=== PATIENT | female | born 1930 | race Caucasian/White ===

== ENCOUNTER 2017-04-09 11:18 | Observation (INO) ==
[2017-04-09] MEDS ORDERED: IOPAMIDOL 100 ML BOTTLE IV ONE (11:19)
--- NOTE | 2017-04-09 11:30 | Emergency Department Note ---
Neuro HPI - General Chief Complaint: Stroke Symptoms Stated Complaint: Left eye changes, left weakness Time Seen by Provider: 04/09/17 11:27 Source: family Mode of arrival: wheelchair Limitations: no limitations - History of Present Illness HPI Narrative: This patient was found 1 hour ago to have slight left-sided weakness and slight left periorbital muscle weakness. She seems to be improving and has good rope walker strength now and some strength in her lower extremity though she still feels like her left leg is slightly weak. She has good strength in her facial muscles at this time. He also is on Coumadin so may not be a candidate for TPA. - Related Data Home Medications: Home Medications Medication Instructions Recorded Confirmed Furosemide [Lasix] 40 mg PO DAILY 02/10/17 04/09/17 HYDROcodone/ACETAMINOPHEN 1 each PO BIDP PRN 02/10/17 04/09/17 [Hydrocodon-Acetaminophen 5-325] Lansoprazole [Prevacid] 30 mg PO [facility] 02/10/17 04/09/17 Metoprolol Tartrate [Lopressor] 12.5 mg PO DAILY 02/10/17 04/09/17 Potassium Chloride [Kdur] 20 meq PO [facility] 02/10/17 04/09/17 Sertraline [Zoloft] 100 mg PO DAILY 02/10/17 04/09/17 Simvastatin [Zocor] 20 mg PO DAILY 02/10/17 04/09/17 Warfarin Sodium [Jantoven] 2 mg PO DAILY 02/10/17 04/09/17 predniSONE [Prednisone] 8 mg PO [facility] 02/10/17 04/09/17 Previous Rx's Medication Instructions Recorded Oseltamivir Phosphate [Tamiflu] 30 mg PO BID #10 cap 02/10/17 Allergies/Adverse Reactions: Allergies Allergy/AdvReac Type Severity Reaction Status Date / Time ADHESIVE TAPE Allergy Mild PT Uncoded 04/09/17 11:25 REQUESTS PAPER TAPE D/T THIN SKIN Review of Systems All systems ED: reviewed and negative except as stated. Past Medical History - Past Medical History Medical history: Reports: cancer (Ovarian), CHF, GERD, hypertension, pulmonary embolus Surgical history ED: Reports: herniorrhaphy (Umbilical) - Social History smoking status: Never smoker Physical Exam Limitations: no limitations General appearance: alert Head: atraumatic, normocephalic Eye: Present: other (At rest the periorbital muscles on the left are weak.) ENT: normal exam Neck: Present: normal inspection Chest: Present: normal inspection Neurological: Present: alert Cranial nerves: facial palsy (VII): Normal Motor strength - LUE: 5/5 Motor strength - RUE: 5/5 Motor strength - LLE: 4/5 Motor strength - RLE: 5/5 Psychiatric: Present: normal affect, normal mood Skin: Present: warm, dry Course Vital Signs Temperature 98.0 F 04/09/17 11:19 Pulse Rate 88 04/09/17 11:19 Respiratory Rate 28 H 04/09/17 11:19 Blood Pressure 179/109 04/09/17 11:19 Pulse Oximetry (%) 90 04/09/17 11:19 Temperature 98.0 F 04/09/17 11:19 Pulse Rate 67 04/09/17 14:30 Respiratory Rate 12 04/09/17 14:30 Blood Pressure 130/70 04/09/17 14:30 Pulse Oximetry (%) 95 04/09/17 14:36 Neuro Symptoms/Deficit - MDM Narrative Medical decision making narrative: Patient's initial CT scan showed small disease but no acute disease. Her initial INR was 2.7 so she was not a candidate for TPA. CTA of head and neck shows several 50% stenoses that are not hemodynamically significant. There certainly was no clot for interventional radiology to go after. Patient continues to have some slight left-sided weakness and the daughter thinks she will be unstable trying to walk at home. She would like her admitted to the hospital. I discussed the case with Dr. Acosta he will admit the patient. - Lab Data Lab results reviewed: Yes I reviewed the patient's lab results. Result diagrams: 04/09/17 11:32 04/09/17 11:32 Lab Results 04/09/17 04/09/17 04/09/17 Range/Units 11:32 11:32 11:32 WBC 9.4 (4.5-11.0) K/mcL RBC 4.79 (4.00-5.20) M/mcL Hgb 15.5 H (12.0-15.0) g/dL Hct 46.2 (36.0-48.0) % POC Hct 45.0 (36.0-48.0) % MCV 96.4 (80.0-100.0) fL MCH 32.3 (26.0-34.0) pg MCHC 33.5 (31.0-36.0) g/dL RDW 13.7 (11.5-14.5) % Plt Count 255 (140-440) K/mcL MPV 7.9 (7.4-10.4) fL Gran % 80.3 H (38.0-78.0) % Lymph % (Auto) 7.5 L (15.5-49.0) % [place] % (Auto) 9.4 (1.0-12.0) % Eos % (Auto) 2.7 (0.0-7.0) % Baso % (Auto) 0.1 (0.0-2.0) % Gran # 7.5 (1.8-8.0) K/mcL Lymph # (Auto) 0.7 L (1.5-4.8) K/mcL [place] # (Auto) 0.9 (0.1-0.9) K/mcL Eos # (Auto) 0.3 (0.0-0.7) K/mcL Baso # (Auto) 0 (0.0-0.3) K/mcL POC PT 27.0 H (11.9-14.5) sec POC INR 2.3 H (0.9-1.2) APTT 36 (20-37) sec POC Sodium 142 (133-145) mmol/L Sodium 142 (133-145) mmol/L POC Potassium 3.6 (3.3-5.1) mmol/L Potassium 3.9 (3.3-5.1) mmol/L POC Chloride 98 (96-108) mmol/L Chloride 98 (96-108) mmol/L Carbon Dioxide 31 H (22-30) mmol/L POC Total CO2 32 H (22-30) mmol/L Anion Gap 13.0 (8-16) POC BUN 24 H (8-23) mg/dl BUN 22 (8-23) mg/dl Creatinine 0.9 (0.6-1.1) mg/dl POC Creatinine 1.0 (0.6-1.1) mg/dl GFR Calculation 59 Glucose 112 H (70-105) mg/dL POC Glucose 115 H (70-105) mg/dL Calcium 9.4 (8.6-10.4) mg/dl POC WB Ioniz Calcium 1.13 L (1.16-1.32) mmol/L Total Bilirubin 0.5 (0.0-1.0) mg/dL AST 29 (0-37) U/l ALT 24 (0-40) U/l Alkaline Phosphatase 93 (39-117) U/L Troponin T (0-0.03) ng/ml Total Protein 6.6 (5.9-8.4) gm/dL Albumin 4.0 (3.2-5.2) gm/dL Globulin 2.6 (2.2-3.7) gm/dL Albumin/Globulin Ratio 1.5 (1.0-2.3) 04/09/17 Range/Units 11:32 WBC (4.5-11.0) K/mcL RBC (4.00-5.20) M/mcL Hgb (12.0-15.0) g/dL Hct (36.0-48.0) % POC Hct (36.0-48.0) % MCV (80.0-100.0) fL MCH (26.0-34.0) pg MCHC (31.0-36.0) g/dL RDW (11.5-14.5) % Plt Count (140-440) K/mcL MPV (7.4-10.4) fL Gran % (38.0-78.0) % Lymph % (Auto) (15.5-49.0) % [place] % (Auto) (1.0-12.0) % Eos % (Auto) (0.0-7.0) % Baso % (Auto) (0.0-2.0) % Gran # (1.8-8.0) K/mcL Lymph # (Auto) (1.5-4.8) K/mcL [place] # (Auto) (0.1-0.9) K/mcL Eos # (Auto) (0.0-0.7) K/mcL Baso # (Auto) (0.0-0.3) K/mcL POC PT (11.9-14.5) sec POC INR (0.9-1.2) APTT (20-37) sec POC Sodium (133-145) mmol/L Sodium (133-145) mmol/L POC Potassium (3.3-5.1) mmol/L Potassium (3.3-5.1) mmol/L POC Chloride (96-108) mmol/L Chloride (96-108) mmol/L Carbon Dioxide (22-30) mmol/L POC Total CO2 (22-30) mmol/L Anion Gap (8-16) POC BUN (8-23) mg/dl BUN (8-23) mg/dl Creatinine (0.6-1.1) mg/dl POC Creatinine (0.6-1.1) mg/dl GFR Calculation Glucose (70-105) mg/dL POC Glucose (70-105) mg/dL Calcium (8.6-10.4) mg/dl POC WB Ioniz Calcium (1.16-1.32) mmol/L Total Bilirubin (0.0-1.0) mg/dL AST (0-37) U/l ALT (0-40) U/l Alkaline Phosphatase (39-117) U/L Troponin T < 0.01 (0-0.03) ng/ml Total Protein (5.9-8.4) gm/dL Albumin (3.2-5.2) gm/dL Globulin (2.2-3.7) gm/dL Albumin/Globulin Ratio (1.0-2.3) - Radiology Data Radiology results reviewed: Yes I reviewed the patient's radiology results. Disposition Pt seen by POLICY VALUE CALCULATOR/PA only: No Clinical Impression: CVA (cerebral vascular accident) Disposition: Xfer As Inpt ([facility]) Condition: Fair Referrals: Franchesca Cardenas MD [Primary Care Provider] - Time of Disposition: 15:03
[2017-04-09 12:08] LABS: Basophils # (Auto) 0 K/mcL (0.0-0.3); Basophils % (Auto) 0.1 % (0.0-2.0); Eosinophils # (Auto) 0.3 K/mcL (0.0-0.7); Eosinophils % (Auto) 2.7 % (0.0-7.0); Granulocytes % (Auto) 80.3 % (38.0-78.0); Lymphocytes # (Auto) 0.7 K/mcL (1.5-4.8); Lymphocytes % (Auto) 7.5 % (15.5-49.0); Mean Cell Volume 96.4 fL (80.0-100.0); Mean Corpuscular HGB Conc 33.5 g/dL (31.0-36.0); Mean Corpuscular Hemoglobin 32.3 pg (26.0-34.0); Monocytes # (Auto) 0.9 K/mcL (0.1-0.9); Monocytes % (Auto) 9.4 % (1.0-12.0); Platelet Count 255 K/mcL (140-440); RBC 4.79 M/mcL (4.00-5.20); Red Cell Distribution Width 13.7 % (11.5-14.5)
[2017-04-09 12:21] LABS: ALT/SGPT 24 U/l (0-40); Albumin/Globulin Ratio 1.5 (1.0-2.3); Alkaline Phosphatase 93 U/L (39-117); Blood Urea Nitrogen 22 mg/dl (8-23)
--- NOTE | 2017-04-09 14:00 | Cat Scan Report ---
History: Acute stroke symptoms with left-sided weakness and prior history of uterine cancer Findings: The brain was imaged without contrast at 2.5 mm intervals. There is a 7 mm old lacunar infarct with encephalomalacia along the inferior border of the left putamen. There are severe widespread white matter changes with large confluent areas of decreased attenuation throughout the frontal and parietal occipital and posterior temporal lobes. These have no mass effect. No cortical infarct is detected. There is no hemorrhage. Mild generalized atrophy is seen. There are multiple physiologic calcifications in the globus pallidus bilaterally as well as in the cerebellar hemispheres. Impression: Severe white matter ischemia or degeneration above the tentorium No evidence of acute infarct or hemorrhage No evidence of metastasis Dr. Velez was called with results at 11:40 AM. Interpreted and Authenticated by: Don Henderson 04/09/17
--- NOTE | 2017-04-09 14:07 | Cat Scan Report ---
History: Acute stroke symptoms with left-sided weakness. There is a prior history of uterine cancer Findings: Nonionic contrast was injected intravenously. Arterial phase images were acquired from the aortic arch to the top of the head. Head and neck were imaged separately. Sagittal coronal and 3-D volume rendered images were then created of the brain and neck. The aortic arch and great vessels arising from the aorta are normal in caliber. There is a moderate amount of plaque in the aortic arch. There is no stenosis at the origin of great vessels. The common carotids are normal. There is a moderate amount densely calcified plaque along the posterior wall of the left carotid bifurcation. This is causing a 50% stenosis at the origin of the left internal carotid. There is no stenosis of the left external carotid. Distal to its origin, the left internal carotid is normal. In the right side of the neck there is a small amount of plaque formation at the bifurcation. There is no associated stenosis. The right internal carotid is otherwise normal. The vertebral arteries are normal and symmetric. Intracranially there is a moderate amount plaque in the cavernous portions of both internal carotids. These are causing less than 50% stenoses. Above the cavernous portions of the internal carotids, the intracranial carotid arteries are normal. The anterior and middle cerebral arteries are normal. The intracranial vertebral and basilar arteries are normal. There is no intracranial stenosis or vascular occlusion. No aneurysm or vascular malformation are present. There is no evidence of enhancing tumor within the brain or an acute inflammatory process. 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 Dr. marroquin was called with the results Interpreted and Authenticated by: Don Henderson 04/09/17
[2017-04-09 15:43] LABS: Appearance,Urine CLEAR; Bilirubin,Urine NEG (NEG); Color,Urine YELLOW; Glucose,Urine (UA) NEGATIVE (NEG); Leukocyte Esterase,Urine NEG /uL (NEG); Protein,Urine NEG (NEG); Specific Gravity,Urine 1.056 (1.000-1.035); Urine Blood NEG mg/dL (<0.03); Urobilinogen,Urine NEG (NEG)
[2017-04-09 16:51] LABS: Myoglobin 47 ng/ml (25-58)
--- NOTE | 2017-04-09 17:09 | Internal Med History&Physical ---
Medical - H&P: HPI Patient information: Note initiated : 04/09/17 at 5:05 pm Service Date, if different from initiated Date: [] Patient: Kim Torres a 86 y/o F admitted on for Left eye changes, left weakness. Chief Complaint: [] History of present illness: Ms. 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 The weakness started around 9:30 in the morning and, the patient fell down, and had decreased sensation in the left leg, the patient also reported numbness and weakness in the left arm, and some numbness in the left side of the face. The daughter of the patient was a nurse evaluated the patient and thought the patient may have had a stroke or TIA) the patient to the hospital. The patient is already on Coumadin with subtherapeutic INR, the patient denies cold was 4 and she had shown improving strength therefore I believe stroke team was not activated of course stroke was not activated. The patient had a head CT done which was reported as negative, labs are unremarkable, patient has negative troponin, INR was 2.3. EKG showed sinus rhythm left axis, left bundle branch block left ventricular hypertrophy along with strain pattern. the patient still had residual left leg weakness and it was thought it was not safe for her to be going back home she was therefore admitted to the hospital for further management The patient had a CT angiogram done for neck and head which shows 50% stenosis of the left ICA, The patient has some headache frontally, some dizziness, blurring of vision, questionable diplopia, she denies any difficulty in swallowing, no changes in hearing, there is no slurring of speech no facial deviation, no changes in behavior according to the daughter. The patient has no chest pain, she has no shortness of breath, she had some nausea, no vomiting, no abdominal pain, no urinary symptoms no constipation or diarrhea. She has chronic back pain, denies any acute skin rashes or new joint pains or arthralgia. Denies any psychiatric issues. All systems: reviewed and no additional remarkable complaints except as stated ( As per HPI) Medical - H&P: PMH Medical history: TIA Pulmonary embolism in the past single episode Hypertension History of uterine cancer Ventral hernia Left bundle-branch block Hyperlipidemia Surgical history: hysterectomy Gallbladder surgery Hernia surgery Pertinent family history: mother had history of cervical cancer Father has history of coronary artery disease and myocardial infarction Social history: patient lives with her daughterDenies any history of smoking, no alcohol use, no dictation substance use. Medical - H&P: Meds Home Medications Medication Instructions Recorded Confirmed Type Furosemide [Lasix] 40 mg PO DAILY 02/10/17 04/09/17 History HYDROcodone/ACETAMINOPHEN 1 each PO BIDP PRN 02/10/17 04/09/17 History [Hydrocodon-Acetaminophen 5-325] Lansoprazole [Prevacid] 30 mg PO [facility] 02/10/17 04/09/17 History Metoprolol Tartrate [Lopressor] 12.5 mg PO DAILY 02/10/17 04/09/17 History Potassium Chloride [Kdur] 20 meq PO [facility] 02/10/17 04/09/17 History Sertraline [Zoloft] 100 mg PO DAILY 02/10/17 04/09/17 History Simvastatin [Zocor] 20 mg PO DAILY 02/10/17 04/09/17 History Warfarin Sodium [Jantoven] 2 mg PO DAILY 02/10/17 04/09/17 History predniSONE [Prednisone] 8 mg PO [facility] 02/10/17 04/09/17 History Allergies Allergy/AdvReac Type Severity Reaction Status Date / Time ADHESIVE TAPE Allergy Mild PT Uncoded 04/09/17 11:25 REQUESTS PAPER TAPE D/T THIN SKIN Medical - H&P: Exam - Constitutional Vitals: Temp Pulse Resp BP Pulse Ox 98.0 F 74 18 146/85 98 04/09/17 11:19 04/09/17 17:01 04/09/17 17:01 04/09/17 17:01 04/09/17 17:01 Exam: GENERAL: The patient is a well-developed, well-nourished in no apparent distress. Is alert and oriented x3. VITAL SIGNS: Reviewed and as noted elsewhere. HEENT: Head is normocephalic and atraumatic. Extraocular muscles are intact. Pupils are equal, round, and reactive to light. Nares appeared normal. Mouth appears any without lesions. Mucous membranes are moist. NECK: Normal to inspection, Supple, No lymphadenopathy or thyromegaly. LUNGS: Air entry equal on both sides, no wheezing, crackles or rhonchi noted. No accessory muscles of respiration HEART: Regular rate and rhythm normal, S1 and S2 heard, no Gallop, S3 or Rub Noted, No Gross murmur heard. ABDOMEN: Soft, nontender, and nondistended. Positive bowel sounds. No hepatosplenomegaly was noted. EXTREMITIES: No cyanosis, clubbing, rash, lesions or edema. NEUROLOGIC: cn nerves intact, mild decrease in field of vision, pt thinks on looking to left her visual field is blurry, but unable to characterize further. She has decrased over all visual field by confrontation method. her strength in upper extremity is 4+/5 in left upper arm, x 5 in right upper arm, lower extremity strength is 4+ in left lower extremity and 5 x 5 in right lower extremity, sensation is mildly decreased on the left leg. Upper extremity sensation and facial sensations are normal PSYCHIATRIC: Normal affect, Normal Mood. Appropriate Behavior. SKIN: No ulceration or wounds noted, No jaundice, No rash noted. Medical - H&P: Reslt - Labs CBC & Chem 7: 04/09/17 11:32 04/09/17 11:32 Labs: Short CBC 04/09/17 Range/Units 11:32 WBC 9.4 (4.5-11.0) K/mcL Hgb 15.5 H (12.0-15.0) g/dL Hct 46.2 (36.0-48.0) % Plt Count 255 (140-440) K/mcL BMP 04/09/17 11:32 Sodium 142 Potassium 3.9 Chloride 98 Carbon Dioxide 31 H BUN 22 Creatinine 0.9 Glucose 112 H Calcium 9.4 Cardiac Enzymes 04/09/17 04/09/17 04/09/17 Range/Units 11:32 15:46 15:46 CK-MB (CK-2) 3.0 H (0-2.9) ng/ml Troponin T < 0.01 < 0.01 (0-0.03) ng/ml Liver Function 04/09/17 Range/Units 11:32 Total Bilirubin 0.5 (0.0-1.0) mg/dL AST 29 (0-37) U/l ALT 24 (0-40) U/l Alkaline Phosphatase 93 (39-117) U/L Albumin 4.0 (3.2-5.2) gm/dL Urine 04/09/17 Range/Units 14:58 Urine Color Yellow Urine Appearance Clear Urine pH 6.0 (5.0-9.0) Ur Specific [place] 1.056 H (1.000-1.035) Urine Protein Neg (NEG) mg/dL Urine Glucose (UA) Negative (NEG) mg/dL Medical - H&P: A/P - Narrative A/P Narrative: A/P TIA/ CVA: patient still has distal left leg weakness, it does not resolve by tomorrow likely would be a CVA, will get an echocardiogram, monitor on telemetry , get MRI of the head tomorrow morning. Patient is on aspirin with therapeutic INR. Pulmonary embolism-history of pulmonary embolism approximately 10 years ago, according to the daughter it was a small clot, probably sometime after she had a cardiac catheter done. No one actually told her how long she needs to be on Coumadin. This likely is also the time. When she had her cancer. In any case I think she is been completely anticoagulated for a pulmonary embolism. I'm not sure if lifelong and decortication is warranted in her condition. She would benefit by a referral to a psychologist educational to see if she still needs to be on Coumadin. The patient would be better served by being on aspirin for CVA prophylaxis. That is no documented history of atrial fibrillation at this point Hypertension-blood pressure was elevated, no medications to be given today, only if systolic blood pressure goes more than 220 and diastolic more than 120. hyperlipidemia-continue statin. Patient will get physical therapy, occupational therapy and speech therapy evaluation. DVT prophylaxis-on Coumadin with therapeutic INR patient is DNR CODE STATUS Medical - H&P: Qual - Stroke Onset of Symptoms Date: 04/09/17 Onset of Symptoms Time: 09:00
[2017-04-09] MEDS ORDERED: HYDROcodone/APAP 5/325MG TABLET PO PRN (17:30)
[2017-04-09] MEDS ORDERED: ONDANSETRON 4 MG/2 ML VIAL IV PRN (17:30)
[2017-04-09] MEDS ORDERED: NALOXONE HCL 0.4 MG/ML VIAL IV PRN (17:30)
[2017-04-09] MEDS: ACETAMINOPHEN 325 MG TABLET PO PRN (18:34)
[2017-04-09] MEDS: 0.9 % SODIUM CHLORIDE 10 ML SYRINGE IV SCH (22:00)
[2017-04-10] MEDS: 0.9 % SODIUM CHLORIDE 10 ML SYRINGE IV SCH ×4 (05:32→22:13)
[2017-04-10 05:37] LABS: Basophils # (Auto) 0 K/mcL (0.0-0.3); Basophils % (Auto) 0.1 % (0.0-2.0); Eosinophils # (Auto) 0.2 K/mcL (0.0-0.7); Eosinophils % (Auto) 2.6 % (0.0-7.0); Granulocytes % (Auto) 79.1 % (38.0-78.0); Lymphocytes # (Auto) 0.6 K/mcL (1.5-4.8); Lymphocytes % (Auto) 7.2 % (15.5-49.0); Mean Cell Volume 96.3 fL (80.0-100.0); Mean Corpuscular HGB Conc 34.2 g/dL (31.0-36.0); Mean Corpuscular Hemoglobin 32.9 pg (26.0-34.0); Platelet Count 199 K/mcL (140-440); RBC 4.22 M/mcL (4.00-5.20); Red Cell Distribution Width 13.6 % (11.5-14.5)
[2017-04-10 05:56] LABS: ALT/SGPT 17 U/l (0-40); Albumin 3.5 gm/dL (3.2-5.2); Albumin/Globulin Ratio 1.6 (1.0-2.3); Alkaline Phosphatase 77 U/L (39-117); Bilirubin,Direct < 0.2 mg/dL (0.0-0.3); Blood Urea Nitrogen 19 mg/dl (8-23); Gamma Glutamyl Transpeptidase 21 U/L (5-36); Uric Acid 5.7 mg/dL (2.5-8.0)
[2017-04-10] MEDS: PANTOPRAZOLE 40 MG TABLET PO SCH (07:00)
[2017-04-10] MEDS: ACETAMINOPHEN 325 MG TABLET PO PRN (07:14)
[2017-04-10] MEDS ORDERED: ASPIRIN 81 MG TAB.CHEW ONE (07:19)
[2017-04-10] MEDS ORDERED: ASPIRIN 81 MG TAB.CHEW CHEWED ONE (07:20)
[2017-04-10] MEDS: POTASSIUM CHLORIDE 20 MEQ TABLET PO SCH (09:08)
[2017-04-10] MEDS: SERTRALINE 100 MG TABLET PO SCH (09:09)
[2017-04-10] MEDS: SIMVASTATIN 20 MG TABLET PO SCH (09:09)
[2017-04-10] MEDS: FUROSEMIDE 40 MG TABLET PO SCH (09:09)
[2017-04-10] MEDS: predniSONE 1 MG TABLET PO SCH (09:09)
[2017-04-10] MEDS: METOPROLOL TARTRATE 25 MG TABLET PO SCH (10:07)
[2017-04-10] MEDS ORDERED: WARFARIN 2 MG TABLET PO SCH (14:00)
--- NOTE | 2017-04-10 15:15 | Internal Med Progress Note ---
Medical - PN: Subj Patient information: Note initiated : 04/10/17 at 3:12 pm Service Date, if different from initiated Date: [] Patient: Kim Torres a 86 y/o F admitted on 04/09/17 for Left Eye Changes, Left Weakness/ TIA/CVA. Chief Complaint: [] Interval history: Ms. 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 The weakness started around 9:30 in the morning and, the patient fell down, and had decreased sensation in the left leg, the patient also reported numbness and weakness in the left arm, and some numbness in the left side of the face. The daughter of the patient was a nurse evaluated the patient and thought the patient may have had a stroke or TIA) the patient to the hospital. The patient is already on Coumadin with subtherapeutic INR, the patient denies cold was 4 and she had shown improving strength therefore I believe stroke team was not activated of course stroke was not activated. The patient had a head CT done which was reported as negative, labs are unremarkable, patient has negative troponin, INR was 2.3. EKG showed sinus rhythm left axis, left bundle branch block left ventricular hypertrophy along with strain pattern. the patient still had residual left leg weakness and it was thought it was not safe for her to be going back home she was therefore admitted to the hospital for further management The patient had a CT angiogram done for neck and head which shows 50% stenosis of the left ICA, The patient has some headache frontally, some dizziness, blurring of vision, questionable diplopia, she denies any difficulty in swallowing, no changes in hearing, there is no slurring of speech no facial deviation, no changes in behavior according to the daughter. The patient has no chest pain, she has no shortness of breath, she had some nausea, no vomiting, no abdominal pain, no urinary symptoms no constipation or diarrhea. She has chronic back pain, denies any acute skin rashes or new joint pains or arthralgia. Denies any psychiatric issues. apr 10 patient seen and examined, no acute overnight events, this morning approximately 6:00 she noticed he may have had a recurrent of TIA. That resolved by the time I had seen her. Exam was unchanged since yesterday. She seemed to be in good spirits, tolerating by mouth diet well. Given this is the second symptom of TIA since yesterday, I think it is time to switch her anticoagulation from Coumadin to aspirin. The patient has no history of atrial fibrillation. She is on Coumadin because of history of pulmonary embolism, 8- 10 years ago. The patient had only one episode of pulmonary embolism, even if this was unprovoked this would only warrant treatment for one year. Given that there is a need to add aspirin to her regime, I will stop Coumadin and start her on aspirin therapy. 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 Echocardiogram result is pending. MRI is pending. Pertinent ROS: Denies headache, dizziness Denies chest pain, palpitations Denies cough or shortness of breath Denies abdominal pain, nausea or vomiting. - Constitutional Vitals: Vital Signs Temp Pulse Resp BP Pulse Ox 99.1 F H 68 16 155/80 93 04/10/17 11:45 04/09/17 23:44 04/10/17 11:45 04/10/17 11:45 04/10/17 11:45 Period Temp Pulse Resp BP Sys/Pineda Pulse Ox Last 24 Hr 97.8 F-100.2 F 68-75 16-29 131-168/67-85 90-98 Intake and Output 04/10/17 04/10/17 04/10/17 05:59 13:59 21:59 Intake Total 275 / 275 540 / 540 Output Total 325 / 325 550 / 550 Balance -50 / -50 -10 / -10 Intake & Output: Intake & Output 04/10/17 04/10/17 04/10/17 05:59 13:59 21:59 Intake Total 275 / 275 540 / 540 Output Total 325 / 325 550 / 550 Balance -50 / -50 -10 / -10 Intake: Oral 275 / 275 540 / 540 Output: Void Amount 325 / 325 550 / 550 Other: Meal Lunch Percent of Meal Consumed 75% Feeding Ability Assist with Tray Set Up Stool Size Large Stool Color Brown Stool Consistency Formed # Voids 1 1 - Head Additional comments: Constitutional; Afebrile, cooperative, alert, not in distress. Eyes- No icterus, , No periorbital swelling Ears- Ext ear normal, hearing normal to conversation. Neck- Midline trachea, supple Respiratory system: Air Entry equal on both sides, No crackles or wheezing, no rhonchi. CVS- Rate rhythm regular, S1,S2 heard, no gallop, no rub. 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 She has blurring of vision for which she uses prednisone. Medical - PN: Obj Da - Labs CBC & Chem 7: 04/10/17 04:25 04/10/17 04:25 Labs: Abnormal Lab Results 04/10/17 04/10/17 04/10/17 04:25 04:25 04:25 Hgb Gran % 79.1 H Lymph % (Auto) 7.2 L Lymph # (Auto) 0.6 L Creek # (Auto) 1.0 H POC PT PT 29.3 H POC INR INR 2.7 H Carbon Dioxide POC Total CO2 POC BUN Glucose POC Glucose POC WB Ioniz Calcium CK-MB (CK-2) Total Protein 5.7 L Ur Specific Noble 04/09/17 04/09/17 04/09/17 15:46 14:58 11:32 Hgb Gran % Lymph % (Auto) Lymph # (Auto) Creek # (Auto) POC PT PT POC INR INR Carbon Dioxide 31 H POC Total CO2 32 H POC BUN 24 H Glucose 112 H POC Glucose 115 H POC WB Ioniz Calcium 1.13 L CK-MB (CK-2) 3.0 H Total Protein Ur Specific Noble 1.056 H 04/09/17 04/09/17 11:32 11:32 Hgb 15.5 H Gran % 80.3 H Lymph % (Auto) 7.5 L Lymph # (Auto) 0.7 L Creek # (Auto) POC PT 27.0 H PT POC INR 2.3 H INR Carbon Dioxide POC Total CO2 POC BUN Glucose POC Glucose POC WB Ioniz Calcium CK-MB (CK-2) Total Protein Ur Specific Noble Meds: Medications Acetaminophen (Tylenol) 650 mg PO Q6HP PRN PRN Reason: PAIN/FEVER > 101 Last Admin: 04/10/17 07:14 Dose: 650 mg Hydrocodone Bitart/Acetaminophen (Cicero 5/325mg) 1 tab PO Q4HP PRN PRN Reason: PAIN LEVEL 3-6 Aspirin (Aspirin) 81 mg PO DAILY [facility] Furosemide (Lasix) 40 mg PO DAILY [facility] Last Admin: 04/10/17 09:09 Dose: 40 mg Metoprolol Tartrate (Lopressor) 12.5 mg PO DAILY [facility] Last Admin: 04/10/17 10:07 Dose: 12.5 mg Naloxone HCl (Narcan) 0.1 mg IV Q2MIN PRN PRN Reason: Opiate Reversal Ondansetron HCl (Zofran) 4 mg IV Q4HP PRN PRN Reason: Nausea And Vomiting [facility]oprazole [facility] Last Admin: 04/10/17 07:00 Dose: 40 mg Polyethylene Glycol (Miralax) 17 gm PO HSP PRN PRN Reason: Constipation Potassium Chloride (Kdur) 20 meq PO [facility] Last Admin: 04/10/17 09:08 Dose: 20 meq Prednisone (Prednisone) 8 mg PO [facility] Last Admin: 04/10/17 09:09 Dose: 8 mg Senna/Docusate Sodium (Senna Plus Tablet) 2 tab PO HS PRN PRN Reason: Constipation Sertraline HCl (Zoloft) 100 mg PO DAILY [facility] Last Admin: 04/10/17 09:09 Dose: 100 mg Simvastatin (Zocor) 20 mg PO DAILY [facility] Last Admin: 04/10/17 09:09 Dose: 20 mg Sodium Chloride (Saline Flush) 10 ml IV Q8 [facility] Last Admin: 04/10/17 05:32 Dose: 10 ml Medical - PN: A/P - Time Spent With Patient Total time spent is greater than 50% in coordination of care (as documented) at patient's floor/unit and/or counseling patient: - Narrative A/P Narrative: A/P TIA/ CVA: another episode this morning?, Patient does not have any neurological weakness compared to yesterday's exam. MRI pending, echo pending, given that there was a second episode I have started the patient on aspirin today. Pulmonary embolism: History of pulmonary embolism in the past, according to the daughter this was after a cardiac, may be related to the same timeframe that she had uterine cancer. At this time she seems to have been adequately treated for the pulmonary embolism. There is no evidence of recurrence of cancer, we will stop the Coumadin here and start her on aspirin. Initially the plan was to have her seen by television mechanic before the switch was made however given that she had a second episode of TIA this morning I think it is prudent that we make the change now. Hypertension-blood pressure was elevated but at goal, hyperlipidemia-continue statin. check lipid profile, check A1c Patient will get physical therapy, occupational therapy and speech therapy evaluation. DVT prophylaxis-on Coumadin with therapeutic INR, check inr and start hep sq once pt inr is sub therapeutic. patient is DNR CODE STATUS Medical - PN: Qual - Stroke Onset of Symptoms Date: 04/09/17 Onset of Symptoms Time: 09:00 Symptom Onset Unknown: No - VTE Deep Vein Thrombosis/Pulmonary Embolism Present on Admission: No
--- NOTE | 2017-04-10 15:16 | Magnetic Resonance Report ---
CLINICAL INFORMATION: Acute left-sided weakness COMPARISON: None. TECHNIQUE:Sagittal T1 FLAIR, axial T1 FLAIR, T2 FLAIR propeller, T2 propeller, gradient, diffusion, ADC and coronal T2 weighted images were acquired. FINDINGS: The ventricles, sulci, fissures and cisterns are symmetrically enlarged compatible with mild age-related atrophy - no extra-axial fluid collections or mass appreciated. Extensive chronic ischemic changes involving most of the deep cerebral white matter. There are multiple (greater than 10) foci of restricted diffusion involving the cortical and subcortical white matter of the right frontal parietal junction - near vertex. They range between three and 8 mm in size. Findings compatible with multiple acute nonhemorrhagic lacunar infarcts. IMPRESSION: Multiple acute, nonhemorrhagic lacunar infarcts in the cortical and subcortical white matter of the right frontal parietal junction - near vertex. These involve both the motor and sensory strip accounting for the patient's left-sided weakness. Consider: emboli from a right common/internal carotid or cardiac source. (The CT cervical carotid arteriogram, performed yesterday, was reviewed and shows only minimal plaque in the right carotid bifurcation.) Mild atrophy and extensive chronic ischemic changes in deep cerebral white matter Interpreted and Authenticated by: Eliseo Oliver 04/10/17
[2017-04-10] MEDS ORDERED: POLYETHYLENE GLYCOL 3350 17 GM PACKET PO PRN (21:00)
[2017-04-10] MEDS ORDERED: SENNOSIDES/DOCUSATE SODIUM 1 TAB TABLET PO PRN (21:00)
[2017-04-11 05:40] LABS: Basophils # (Auto) 0 K/mcL (0.0-0.3); Basophils % (Auto) 0.1 % (0.0-2.0); Eosinophils # (Auto) 0.3 K/mcL (0.0-0.7); Eosinophils % (Auto) 4.1 % (0.0-7.0); Granulocytes % (Auto) 73.9 % (38.0-78.0); Lymphocytes # (Auto) 0.7 K/mcL (1.5-4.8); Lymphocytes % (Auto) 10.4 % (15.5-49.0); Mean Cell Volume 95.3 fL (80.0-100.0); Mean Corpuscular HGB Conc 34.1 g/dL (31.0-36.0); Mean Corpuscular Hemoglobin 32.5 pg (26.0-34.0); Monocytes # (Auto) 0.8 K/mcL (0.1-0.9); Monocytes % (Auto) 11.5 % (1.0-12.0); Platelet Count 203 K/mcL (140-440); RBC 4.25 M/mcL (4.00-5.20); Red Cell Distribution Width 13.9 % (11.5-14.5)
[2017-04-11 05:56] LABS: ALT/SGPT 16 U/l (0-40); Albumin 3.4 gm/dL (3.2-5.2); Albumin/Globulin Ratio 1.5 (1.0-2.3); Alkaline Phosphatase 75 U/L (39-117); Bilirubin,Direct < 0.2 mg/dL (0.0-0.3); Blood Urea Nitrogen 17 mg/dl (8-23); Gamma Glutamyl Transpeptidase 20 U/L (5-36); HDL Cholesterol 53 mg/dl (>40); LDL Cholesterol,Calculated 72 mg/dl (SEE CHART); Uric Acid 5.6 mg/dL (2.5-8.0)
[2017-04-11] MEDS: 0.9 % SODIUM CHLORIDE 10 ML SYRINGE IV SCH (06:01)
[2017-04-11 06:26] LABS: Estimated Average Glucose(eAG) 123 mg/dL; Hemoglobin A1C 5.9 % HGB (4.0-6.0)
[2017-04-11] MEDS: PANTOPRAZOLE 40 MG TABLET PO SCH (07:27)
[2017-04-11] MEDS: FUROSEMIDE 40 MG TABLET PO SCH (08:56)
[2017-04-11] MEDS: SIMVASTATIN 20 MG TABLET PO SCH (08:56)
[2017-04-11] MEDS: METOPROLOL TARTRATE 25 MG TABLET PO SCH (08:57)
[2017-04-11] MEDS ORDERED: POTASSIUM CHLORIDE 20 MEQ PACKET PO ONE (08:58)
[2017-04-11] MEDS: POTASSIUM CHLORIDE 20 MEQ TABLET PO SCH (08:59)
[2017-04-11] MEDS ORDERED: ASPIRIN 81 MG TAB.CHEW PO SCH ×2 (09:00)
[2017-04-11] MEDS: predniSONE 1 MG TABLET PO SCH (09:00)
[2017-04-11] MEDS: SERTRALINE 100 MG TABLET PO SCH (10:52)
--- NOTE | 2017-04-11 11:29 | Discharge Summary ---
Medical - DS: Prov Patient information: Note initiated : 04/11/17 at 11:22 am Service Date, if different from initiated Date: [] Patient: Kim Torres 86 y/o F admitted on 04/09/17 for Left Eye Changes, Left Weakness/ TIA/CVA. Chief Complaint: [] Date of admission: 04/09/17 17:17 Discharge date: 04/11/17 Primary care physician: Franchesca Cardenas Admitting clinician: Esme Acosta Discharging clinician: Esme Acosta Medical - DS: Meds - Discharge Medications Prescriptions: Aspirin 81 mg PO DAILY #30 tab Active and Home Medications: Home Medications Furosemide [Lasix] 40 mg PO DAILY 02/10/17 [History Confirmed 04/09/17 Last Taken Unknown] HYDROcodone/ACETAMINOPHEN [Hydrocodon-Acetaminophen 5-325] 1 each PO BIDP PRN [History Confirmed 04/09/17 Last Taken Unknown] Lansoprazole [Prevacid] 30 mg PO [facility] 02/10/17 [History Confirmed 04/09/17 Last Taken Unknown] Metoprolol Tartrate [Lopressor] 12.5 mg PO DAILY 02/10/17 [History Confirmed Last Taken Unknown] Potassium Chloride [Kdur] 20 meq PO [facility] 02/10/17 [History Confirmed 04/09/17 Last Taken Unknown] Sertraline [Zoloft] 100 mg PO DAILY 02/10/17 [History Confirmed 04/09/17 Last Taken Unknown] Simvastatin [Zocor] 20 mg PO DAILY 02/10/17 [History Confirmed 04/09/17 Last Taken Unknown] Warfarin Sodium [Jantoven] 2 mg PO DAILY 02/10/17 [History Confirmed 04/09/17 Last Taken Unknown] predniSONE [Prednisone] 8 mg PO [facility] 02/10/17 [History Confirmed 04/09/17 Last Taken Unknown] Medical - DS: Hosp Hospital course: Ms. 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 The weakness started around 9:30 in the morning and, the patient fell down, and had decreased sensation in the left leg, the patient also reported numbness and weakness in the left arm, and some numbness in the left side of the face. The daughter of the patient was a nurse evaluated the patient and thought the patient may have had a stroke or TIA) the patient to the hospital. The patient is already on Coumadin with subtherapeutic INR, the patient denies cold was 4 and she had shown improving strength therefore I believe stroke team was not activated of course stroke was not activated. The patient had a head CT done which was reported as negative, labs are unremarkable, patient has negative troponin, INR was 2.3. EKG showed sinus rhythm left axis, left bundle branch block left ventricular hypertrophy along with strain pattern. the patient still had residual left leg weakness and it was thought it was not safe for her to be going back home she was therefore admitted to the hospital for further management The patient had a CT angiogram done for neck and head which shows 50% stenosis of the left ICA, bilateral moderate stenosis intracranially. The patient was doing well, but the next morning she complained about having recurrence of her symptoms on the left side, NIH score was 6, was 4 on admission. MRI of the head done which showed multiple small infarcts in the right side. Patient was given asa 325, The patient is on coumadin for PE, the patient had one episode of PE 10 yrs ago , after a cardiac cath procedure, she likely also had uterine cancer around that time. The patient has no h/o atrial fibrillation. The patient was having embolic stroke despite being on therapeutic dose of coumadin. Echo done showed normal lvef, no thrombus. Case of the patient was reviewed with Neurology in [place], Since patient has already likely been adequately treated for her PUlmonary embolus, and that she now has CVA. It was decided to start her on aspirin regime and stop the coumadin the patient would benefit from a evaluation with a stroke neurologist as outpatient after discharge, she will benefit from a evaluation by caretaker resort to ensure that she does not need skilled nursing anticogulation with coumadin for her PE. At the time of discharge the patient has mild left risidual weakness, some blurring of vision and diplopia, she is ambulatory, she is tolerating po diet well and in good spirits. Will d/c home with home physical therapy, Discharge diagnosis: CVA - Time Spent with Patient Total time spent providing and/or coordinating discharge services: Greater than 30 minutes Medical - DS: Exam - Constitutional Vitals: Vital Signs Temp Resp BP BP BP Pulse Ox 04/11/17 07:45 162/86 04/11/17 07:35 98.7 F 16 186/86 93 04/11/17 03:40 97.6 F 17 155/86 94 04/10/17 23:39 97.8 F 17 158/83 92 04/10/17 19:41 98.4 F 18 141/72 93 04/10/17 16:00 98.9 F 16 167/93 93 04/10/17 11:45 99.1 F H 16 155/80 93 Intake and Output 04/10/17 04/11/17 04/11/17 21:59 05:59 13:59 Intake Total 840 / 840 360 / 360 Output Total 350 / 350 725 / 725 Balance 490 / 490 -365 / -365 Intake: Oral 840 / 840 360 / 360 Output: Void Amount 350 / 350 725 / 725 Other: Meal Dinner Percent of Meal Consumed 100% Stool Size Small Stool Color Brown Stool Consistency Soft # Voids 0 1 # Bowel Movements 1 Weight 93 lb 1.6 oz Additional comments: Constitutional; Afebrile, cooperative, alert, not in distress. Eyes- No icterus, , No periorbital swelling Ears- Ext ear normal, hearing normal to conversation. Neck- Midline trachea, supple Respiratory system: Air Entry equal on both sides, No crackles or wheezing, no rhonchi. CVS- Rate rhythm regular, S1,S2 heard, no gallop, no rub. 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 These involve both the motor and sensory strip accounting for the patient's left-sided weakness. Consider: emboli from a right common/internal carotid or cardiac source. (The CT cervical carotid arteriogram, performed yesterday, was reviewed and shows only minimal plaque in the right carotid bifurcation.) Mild atrophy and extensive chronic ischemic changes in deep cerebral white matter CTA neck and Head Impression: 50% stenosis at the origin of the left internal carotid due to plaque formation Normal right carotid artery Less than 50% stenoses in the cavernous portions of the intracranial portions of the internal carotids due to plaque. (neurologist felt that the right ICA intracranially also had significant plaque burdeon Head CT Impression: Severe white matter ischemia or degeneration above the tentorium No evidence of acute infarct or hemorrhage No evidence of metastasis Labs on day of discharge: Labs from last 24 hours 04/11/17 04/11/17 04/11/17 04:26 04:26 04:26 WBC 6.9 RBC 4.25 Hgb 13.8 Hct 40.5 MCV 95.3 MCH 32.5 MCHC 34.1 RDW 13.9 Plt Count 203 MPV 7.7 Gran % 73.9 Lymph % (Auto) 10.4 L Towns % (Auto) 11.5 Eos % (Auto) 4.1 Baso % (Auto) 0.1 Gran # 5.1 Lymph # (Auto) 0.7 L Towns # (Auto) 0.8 Eos # (Auto) 0.3 Baso # (Auto) 0 PT 24.0 H INR 2.1 H Sodium 140 Potassium 3.2 L Chloride 99 Carbon Dioxide 30 Anion Gap 11.0 BUN 17 Creatinine 0.8 GFR Calculation 68 Glucose 88 Hemoglobin A1c 5.9 Estim Average Glucose 123 Uric Acid 5.6 Calcium 8.7 Phosphorus 2.7 Magnesium 1.8 Total Bilirubin 0.7 Direct Bilirubin < 0.2 GGT 20 AST 22 ALT 16 Alkaline Phosphatase 75 Lactate Dehydrogenase 181 Total Protein 5.7 L Albumin 3.4 Globulin 2.3 Albumin/Globulin Ratio 1.5 Triglycerides 96 Cholesterol 144 LDL Cholesterol, Calc 72 Non-HDL Cholesterol 91 HDL Cholesterol 53 Medical - DS: A/P - Patient/Caregiver Discharge Instructions Activity: as per physical therapy, increase activity as tolerated Diet: Cardiac Additional Instructions: Stop taking Coumadin Start aspirin 81 mg once a day taken with food Go to the emergency year worsening situation, left-sided weakness, acute headache, any other concerning symptom. Follow-up with hematology Dr. Mejias for evaluating the need for Coumadin. I have stopped this as I believe at this point you are adequately treated for pulmonary embolism but we will need the opinion from a specialist confirm this Follow-up with stroke neurology clinic at [place] Follow-up with primary care clinic in 1-2 weeks Work with physical therapy after discharge to regain function Follow-up with your eye doctor for evaluation of double vision and blurring Prescriptions: Aspirin 81 mg PO DAILY #30 tab - Follow up Plan Follow up with: Franchesca Cardenas MD [Primary Care Provider] - 04/17/17 10:00 am Homer Mejias MD [Physician] - Disposition: Home Health Service Prognosis: Fair Rehab Potential: Fair I certify that the patient requires SNF services: No Overall status at discharge: patient is progressing back to baseline Medical - DS: Qual - VTE Deep Vein Thrombosis/Pulmonary Embolism Present on Admission: No
[2017-04-11] MEDS ORDERED: WARFARIN 1 MG TABLET PO SCH (14:00)
== END 2017-04-11 15:45 | disposition home health service (06) ==
LOC: ED 11:18 → ICU 11:18
PROVIDERS: ADMIT Internal Medicine; ATTEND Internal Medicine

== ENCOUNTER 2018-12-28 18:25 | Inpatient (IN) ==
--- NOTE | 2018-12-28 19:14 | Emergency Department Note ---
SOB HPI - General Chief Complaint: Weakness Stated Complaint: weakness Time Seen by Provider: 12/28/18 18:31 Source: patient Mode of arrival: ambulatory Limitations: no limitations - History of Present Illness 88-year-old female patient referred to the emergency department via minor care with chief complaint of hypoxia. She was seen in minor care with chief complain t of worsening cough and chest congestion over the last 5 days. During her evaluation she was noted to be hypoxic around 86% on room air. They did a chest x-ray minor care that showed moderate distention of the fluid-filled esophagus. Radiologist suspected a stricture at the GE junction predisposing the patient aspiration. Radiologist did recommend an esophagram. He noted mild right perihilar infiltrate that was either pneumonia or could be aspiration. Patient moderate cardiomegaly. Patient also had osteoporotic compression fractures of the mid lower thoracic spine which are stable. He mentions no pulmonary edema. Upon arrival patient is awake, alert, and conversant. Oxygen saturation to triage were 86% on room air. She was placed on a nasal cannula at 2 L/m and her oxygen saturations increased to 98-99 percent. She was noted to be profoundly tachypneic at 36 breaths per minute. Her blood pressure was elevated 172/121. She admits to some proceeding and chills. She denies any overt fevers. She denies any sputum production. She denies sinus congestion. She admits to p rofuse runny nose that is chronic. She admits to worsening shortness of breath. She denies history of asthma or COPD. She denies retrosternal chest pain or palpitations. She denies abdominal pain, nausea, vomiting, or diarrhea. She denies focal weakness. She admits to generalized weakness. She denies significant weight gain. A review of her active problem list shows the following: Influenza B, CVA, shingles, hypertension, tremor, CHF, right finger fracture, skin abscess, epistaxis, ovarian cancer, history of intra-abdominal surgery. - Related Data Home Medications Medication Instructions Recorded Confirmed Polyethylene Glycol 3350 [Miralax] 17 gm PO DAILY 12/28/18 12/28/18 aspirin 81 mg tablet,delayed 81 mg PO QDAY 12/28/18 12/28/18 release dorzolamide-timolol (PF) 2 %-0.5 % 1 drp OPHTHALMIC BID 12/28/18 12/28/18 eye drops in a dropperette furosemide 40 mg tablet 40 mg PO QAM 12/28/18 12/28/18 hydrocodone 5 mg-acetaminophen 325 1 tab PO BID tab 12/28/18 12/28/18 mg tablet lansoprazole 30 mg capsule,delayed 30 mg PO BID cap 12/28/18 12/28/18 release lorazepam 0.5 mg tablet 0.25 mg PO QHS PRN 12/28/18 12/28/18 metoprolol tartrate 25 mg tablet 12.5 mg PO QDAY tab 12/28/18 12/28/18 multivit with 1 tab PO QDAY 12/28/18 12/28/18 rfzykaoh-pxho-JI-lutein 8 mg iron-400 mcg-300 mcg tablet potassium chloride 10 mEq 20 meq PO QDAY 12/28/18 12/28/18 capsule,extended release prednisone 5 mg tablet 5 mg PO Q OTHER DAY tab 12/28/18 12/28/18 sennosides 8.6 mg tablet 8.6 mg PO BID PRN 12/28/18 12/28/18 sertraline 100 mg tablet 100 mg PO QDAY 12/28/18 12/28/18 simvastatin 20 mg tablet 20 mg PO QHS 12/28/18 12/28/18 tizanidine 4 mg capsule 4 mg PO QHS 12/28/18 12/28/18 Allergies Allergy/AdvReac Type Severity Reaction Status Date / Time adhesive tape Allergy Mild Redness of Verified 12/28/18 18:30 Skin Review of Systems All systems ED: reviewed and negative except as stated. Past Medical History - Past Medical History Medical history: Reports: cancer (Ovarian), CHF, GERD, glaucoma, hyperlipidemia, hypertension, pulmonary embolus, other (Left bundle branch block) Surgical history ED: Reports: cholecystectomy, herniorrhaphy (Umbilical), hysterectomy - Social History smoking status: Never smoker Alcohol use: Reports: None Drug use: Reports: none Physical Exam Limitations: no limitations General appearance: alert, cachectic, in no apparent distress, other (patient is in no acute respiratory distress. She is able to speak in complete sentences. She does appear chronically ill.) Head: atraumatic, normocephalic Eye: Present: normal appearance, PERRL, EOMI. Absent: scleral icterus, conjunctival injection ENT: Present: normal oropharynx, mucous membranes moist Neck: Present: trachea midline. Absent: lymphadenopathy, thyromegaly Chest: Present: symmetric chest wall rise Respiratory: Present: normal lung sounds bilaterally, decreased breath sounds (decreased breath sounds throughout the chest.). Absent: respiratory distress, rales/crackles (No considerable rhonchi or crackles heard.), wheezes, stridor, accessory muscle use, prolonged expiratory phase Cardiovascular: Present: regular rate, irregular rhythm Abdominal: Present: soft, diminished bowel sounds, other. Absent: distention, tenderness, guarding, rebound, rigidity Extremities: Present: normal capillary refill, pedal edema, pretibial edema, other (considerable plus 23 pitting edema from foot to the knee. Skin tear noted to the anterior portion of the left lower leg has a scant amount of yellow colored drainage.). Absent: tenderness, calf tenderness Back: Absent: tenderness Neurological: Present: alert, oriented X3 Psychiatric: Present: normal affect, normal mood Skin: Present: warm, dry, other (skin tear as noted above.) Course Course Narrative: Patient was brought into the emergency department and a history and physical exam performed. Saline lock was started and laboratory studies are drawn. Patient had a chest x-ray performed minor care that did show a developing infiltrate. She continued to need nasal cannula oxygen at 2 L/m. Based on this fact, patient I will start treatment for the developing pneumonia with Rocephin 1 g and azithromycin 500 mg IV. A review of her laboratory studies show the following: CBC hemoglobin 16.4, hematocrit 50.3, granulocytes percent 80.0, all others a normal limits. CMP CO2 32, BUN 31, glucose 117, AST 42, all others are normal limits. Lactic acid 1.1. Pro-calcitonin less than 0.05. ProBNP 15,537. After reviewing all the data I discussed these findings with the patient and her family. At this time she remains hypoxic without supplemental oxygen. She has the pneumonia developing in her chest and a significant elevated proBNP in the context of ongoing CHF. Patient needs to be admitted to the hospital for further treatment and management. With this in mind, I reached out to the hospitalist (Dr. Gauthier) about the patient. He mentioned that the pneumonia is likely aspiration variant versus community-acquired. All the antibiotics and I had started the emergency department are likely going to be ineffective. He is going to switch her over to something more appropriate such as Zosyn. He consented to receive the patient into the hospital. I discussed this with the patient's family and they verbalized understanding. Patient remained stable while on supplemental oxygen throughout her time in the emergency department. She is being transferred under the care of the hospitalist (Dr. Gauthier). All further treatment decisions and modalities will be carried out by the hospitalist. Vital Signs Temperature 96.8 F L 12/28/18 18:26 Respiratory Rate 36 H 12/28/18 18:26 Blood Pressure 172/121 12/28/18 18:26 Pulse Oximetry (%) 86 L 12/28/18 18:26 Temperature 96.8 F L 12/28/18 18:26 Pulse Rate 70 12/28/18 22:14 Respiratory Rate 28 H 12/28/18 22:14 Blood Pressure 136/82 12/28/18 22:01 Pulse Oximetry (%) 96 12/28/18 22:14 Shortness of Breath/Dyspnea - Lab Data Result diagrams: 12/28/18 19:56 12/28/18 20:45 Lab Results 12/28/18 12/28/18 12/28/18 Range/Units 19:56 19:56 20:12 WBC 6.5 (4.5-11.0) K/mcL RBC 5.18 (4.00-5.20) M/mcL Hgb 16.4 H (12.0-15.0) g/dL Hct 50.3 H (36.0-48.0) % POC Hct (36.0-48.0) % MCV 97.2 (80.0-100.0) fL MCH 31.6 (26.0-34.0) pg MCHC 32.5 (31.0-36.0) g/dL RDW 14.7 H (11.5-14.5) % Plt Count 177 (140-440) K/mcL MPV 8.2 (7.4-10.4) fL Gran % 80.0 H (38.0-78.0) % Lymph % (Auto) 8.8 L (15.5-49.0) % Victoria % (Auto) 10.8 (1.0-12.0) % Eos % (Auto) 0.1 (0.0-7.0) % Baso % (Auto) 0.3 (0.0-2.0) % Gran # 5.2 (1.8-8.0) K/mcL Lymph # (Auto) 0.6 L (1.5-4.8) K/mcL Victoria # (Auto) 0.7 (0.1-0.9) K/mcL Eos # (Auto) 0 (0.0-0.7) K/mcL Baso # (Auto) 0 (0.0-0.3) K/mcL VBG Lactic Acid (0.5-2.0) mmol/L POC Sodium (133-145) mmol/L Sodium 142 (133-145) mmol/L POC Potassium (3.3-5.1) mmol/L Potassium 3.8 (3.3-5.1) mmol/L POC Chloride (96-108) mmol/L Chloride 100 (96-108) mmol/L Carbon Dioxide 32 H (22-30) mmol/L POC Total CO2 (22-30) mmol/L Anion Gap 10.0 (8-16) POC BUN (8-23) mg/dl BUN 31 H (8-23) mg/dl Creatinine 0.8 (0.6-1.1) mg/dl POC Creatinine (0.6-1.1) mg/dl GFR Calculation 67 Glucose 117 H (70-105) mg/dL POC Glucose (70-105) mg/dL Calcium 9.1 (8.6-10.4) mg/dl POC WB Ioniz Calcium (1.16-1.32) mmol/L Total Bilirubin 0.3 (0.0-1.0) mg/dL AST 42 H (0-37) U/l ALT 27 (0-40) U/l Alkaline Phosphatase 92 (39-117) U/L NT-Pro-B Natriuret Pep 30125.0 H (0-450) pg/ml Total Protein 6.2 (5.9-8.4) gm/dL Albumin 3.8 (3.2-5.2) gm/dL Globulin 2.4 (2.2-3.7) gm/dL Albumin/Globulin Ratio 1.6 (1.0-2.3) Procalcitonin < 0.05 (<0.10) ng/mL 12/28/18 12/28/18 Range/Units 20:45 20:45 WBC (4.5-11.0) K/mcL RBC (4.00-5.20) M/mcL Hgb (12.0-15.0) g/dL Hct (36.0-48.0) % POC Hct 50.0 H (36.0-48.0) % MCV (80.0-100.0) fL MCH (26.0-34.0) pg MCHC (31.0-36.0) g/dL RDW (11.5-14.5) % Plt Count (140-440) K/mcL MPV (7.4-10.4) fL Gran % (38.0-78.0) % Lymph % (Auto) (15.5-49.0) % Victoria % (Auto) (1.0-12.0) % Eos % (Auto) (0.0-7.0) % Baso % (Auto) (0.0-2.0) % Gran # (1.8-8.0) K/mcL Lymph # (Auto) (1.5-4.8) K/mcL Victoria # (Auto) (0.1-0.9) K/mcL Eos # (Auto) (0.0-0.7) K/mcL Baso # (Auto) (0.0-0.3) K/mcL VBG Lactic Acid 1.1 (0.5-2.0) mmol/L POC Sodium 141 (133-145) mmol/L Sodium TNP (133-145) mmol/L POC Potassium 3.8 (3.3-5.1) mmol/L Potassium TNP (3.3-5.1) mmol/L POC Chloride 99 (96-108) mmol/L Chloride TNP (96-108) mmol/L Carbon Dioxide TNP (22-30) mmol/L POC Total CO2 33 H (22-30) mmol/L Anion Gap TNP (8-16) POC BUN 32 H (8-23) mg/dl BUN TNP (8-23) mg/dl Creatinine TNP (0.6-1.1) mg/dl POC Creatinine 0.8 (0.6-1.1) mg/dl GFR Calculation TNP Glucose TNP (70-105) mg/dL POC Glucose 116 H (70-105) mg/dL Calcium TNP (8.6-10.4) mg/dl POC WB Ioniz Calcium 1.10 L (1.16-1.32) mmol/L Total Bilirubin TNP (0.0-1.0) mg/dL AST TNP (0-37) U/l ALT TNP (0-40) U/l Alkaline Phosphatase TNP (39-117) U/L NT-Pro-B Natriuret Pep TNP (0-450) pg/ml Total Protein TNP (5.9-8.4) gm/dL Albumin TNP (3.2-5.2) gm/dL Globulin TNP (2.2-3.7) gm/dL Albumin/Globulin Ratio TNP (1.0-2.3) Procalcitonin (<0.10) ng/mL - Radiology Data Radiology results reviewed: Yes I reviewed the patient's radiology results. Ordering Physician: Yanira Argueta PA-C Date of Service: 12/28/18 Procedure(s): XR chest 2V Accession Number(s): [id number] CLINICAL INFORMATION: J10.1 Influenza due to other identified influenza virus w... COMPARISON: 10/03/2018 FINDINGS: Heart is moderately enlarged, but unchanged. There is marked dilatation of the esophagus which demonstrates an air-fluid level in the mid mediastinum. Suspect stricture at the GE level. The mediastinum and pulmonary vessels are normal. Small vague right perihilar infiltrate has developed. Underlying COPD noted. No effusion. IMPRESSION: 1. Moderate distention of the fluid-filled esophagus - suspect stricture at the GE junction. This would predispose to aspiration. Consider: esophagram 2. Mild right perihilar infiltrate - either pneumonia or aspiration 3. Moderate cardiomegaly - stable 4. Osteoporotic compression fractures mid lower thoracic spine - stable Interpreted and Authenticated by: Eliseo Oliver 12/28/18 - EKG Data EKG attestation: Yes I reviewed and interpreted this EKG., Yes There are no EKG findings of acute coronary syndrome, Yes This EKG will be read by galley cook EKG results narrative: Twelve-lead EKG was compared to previous done over a year ago and is unchanged. Disposition Pt seen by CRA[employer]ER [employer]AG[employer] OPERATOR/PA only: Yes Clinical Impression: Hypoxia Pneumonia Qualifiers: Pneumonia type: due to unspecified organism Laterality: right Lung location: lower lobe of lung Qualified Code(s): J18.9 - Pneumonia, unspecified organism CHF (congestive heart failure) Qualifiers: Heart failure type: unspecified Heart failure chronicity: acute on chronic Qualified Code(s): I50.9 - Heart failure, unspecified Disposition: Xfer As Inpt ([facility]) Condition: Serious Additional Instructions: Patient is being admitted to the hospital under the care of the hospitalist (Dr. Gauthier). All further treatment decisions and modalities we carried out by the hospitalist. Referrals: Franchesca Cardenas MD [Primary Care Provider] - Time of Disposition: 22:34
[2018-12-28] MEDS ORDERED: AZITHROMYCIN 500 MG in DEXTROSE 5% IN WATER 250 ML IV ONE (20:00)
[2018-12-28] MEDS ORDERED: cefTRIAXone 1 GM VIAL IV SCH (20:00)
[2018-12-28 20:23] LABS: Basophils # (Auto) 0 K/mcL (0.0-0.3); Basophils % (Auto) 0.3 % (0.0-2.0); Eosinophils # (Auto) 0 K/mcL (0.0-0.7); Eosinophils % (Auto) 0.1 % (0.0-7.0); Hematocrit 50.3 % (36.0-48.0); Hemoglobin 16.4 g/dL (12.0-15.0); Lymphocytes # (Auto) 0.6 K/mcL (1.5-4.8); Lymphocytes % (Auto) 8.8 % (15.5-49.0); Mean Cell Volume 97.2 fL (80.0-100.0); Mean Corpuscular HGB Conc 32.5 g/dL (31.0-36.0); Mean Platelet Volume 8.2 fL (7.4-10.4); Monocytes # (Auto) 0.7 K/mcL (0.1-0.9); Monocytes % (Auto) 10.8 % (1.0-12.0); Platelet Count 177 K/mcL (140-440); RBC 5.18 M/mcL (4.00-5.20); Red Cell Distribution Width 14.7 % (11.5-14.5); WBC 6.5 K/mcL (4.5-11.0)
[2018-12-28 20:57] LABS: POC Blood Urea Nitrogen 32 mg/dl (8-23); POC CO2 33 mmol/L (22-30); POC Chloride 99 mmol/L (96-108); POC Creatinine 0.8 mg/dl (0.6-1.1); POC Glucose, Random 116 mg/dL (70-105); POC Potassium 3.8 mmol/L (3.3-5.1); POC Sodium 141 mmol/L (133-145)
[2018-12-28 22:06] LABS: ALT/SGPT 27 U/l (0-40); AST/SGOT 42 U/l (0-37); Albumin 3.8 gm/dL (3.2-5.2); Albumin/Globulin Ratio 1.6 (1.0-2.3); Alkaline Phosphatase 92 U/L (39-117); Bilirubin,Total 0.3 mg/dL (0.0-1.0); Blood Urea Nitrogen 31 mg/dl (8-23); Calcium 9.1 mg/dl (8.6-10.4); Carbon Dioxide 32 mmol/L (22-30); Chloride 100 mmol/L (96-108); Globulin 2.4 gm/dL (2.2-3.7); Glomerular Filtration Rate 67; Glucose 117 mg/dL (70-105)
--- NOTE | 2018-12-28 22:22 | Internal Med History&Physical ---
Medical - H&P: HPI Patient information: Note initiated : 12/28/18 at 10:21 pm Service Date, if different from initiated Date: [] Patient: Kim Torres a 88 y/o F admitted on for weakness. Chief Complaint: [] Chief complaint: Shortness of breath, weakness History of present illness: Ms. Torres is a 88 year old F resident at [facility] with known history of esophageal stricture with intermittent dilatation in the past. She was taken to minor care with increasing shortness of breath, moist cough and dyspnea. Imaging was consistent with pneumonia she was sent to the ER for further evaluation. She is accompanied with her elder daughter Kika. She was able to answer most the question. She was initially fairly distressed with tachypnea and SOB requiring oxygen to maintain sats . Symptoms were about a week in onset with cough and dyspnea. She denies associated fever or shaking chills. She denies recent exposure to sick contacts, denies choking episodes. Initial work-up in the ER consistent with aspiration pneumonia/distended and fluid-filled esophagus with suspected stricture at GE level, she was promptly initiated on Rocephin/Zithromax coverage. Hospitalist service is consulted for admission in light of above At the time of evaluation patient is accompanied with her daughter. Most of the history is obtained from review of medical records/ER physician patient's daughter and patient herself. Patient does not appear distressed during my exam, I discussed patient's clinical status with patient's daughter and/ANTONIA Mena. I was advised to continue full medical treatment while keeping her DNR without any aggressive life saving interventions. She denies diarrhea, dysuria but endorses to abdominal hernias without discomfort. Review of systems 10 point review system was performed and is negative except was cussed above Medical - H&P: PM Medical history: TIA Pulmonary embolism in the past single episode Hypertension History of uterine cancer Ventral hernia Left bundle-branch block Hyperlipidemia Surgical history: hysterectomy Gallbladder surgery Hernia surgery Pertinent family history: mother had history of cervical cancer Father has history of coronary artery disease and myocardial infarction Social history: Daughter Mena KNIGHT No history of smoking, no alcohol use, no substance use. Lives at [facility] Medical - H&P: Meds Home Medications Medication Instructions Recorded Confirmed Type Polyethylene Glycol 3350 [Miralax] 17 gm PO DAILY 12/28/18 12/29/18 History aspirin 81 mg tablet,delayed 81 mg PO QDAY 12/28/18 12/29/18 History release dorzolamide-timolol (PF) 2 %-0.5 % 1 drp OPHTHALMIC BID 12/28/18 12/29/18 History eye drops in a dropperette furosemide 40 mg tablet 40 mg PO QAM 12/28/18 12/29/18 History hydrocodone 5 mg-acetaminophen 325 1 tab PO BID tab 12/28/18 12/29/18 History mg tablet lansoprazole 30 mg capsule,delayed 30 mg PO BID cap 12/28/18 12/29/18 History release lorazepam 0.5 mg tablet 0.25 mg PO QHS PRN 12/28/18 12/29/18 History metoprolol tartrate 25 mg tablet 12.5 mg PO QDAY tab 12/28/18 12/29/18 History multivit with 1 tab PO QDAY 12/28/18 12/28/18 History ztnonlwi-bwcf-HP-lutein 8 mg iron-400 mcg-300 mcg tablet potassium chloride 10 mEq 20 meq PO QDAY 12/28/18 12/29/18 History capsule,extended release prednisone 5 mg tablet 5 mg PO Q OTHER DAY tab 12/28/18 12/29/18 History sennosides 8.6 mg tablet 8.6 mg PO BID PRN 12/28/18 12/29/18 History sertraline 100 mg tablet 100 mg PO QDAY 12/28/18 12/29/18 History simvastatin 20 mg tablet 20 mg PO QHS 12/28/18 12/29/18 History tizanidine 4 mg capsule 4 mg PO QHS 12/28/18 12/29/18 History Allergies Allergy/AdvReac Type Severity Reaction Status Date / Time adhesive tape Allergy Mild Redness of Verified 12/28/18 18:30 Skin Medical - H&P: Exam - Constitutional Vitals: Temp Pulse Resp BP Pulse Ox 96.8 F L 70 28 H 136/82 96 12/28/18 18:26 12/28/18 22:14 12/28/18 22:14 12/28/18 22:01 12/28/18 22:14 General appearance: no acute distress Exam: Minimally short of breath alert And responding to commands Head normocephalic Oral cavity dry No lymphadenopathy S1-S2 regular rhythm ESM grade 1 Diminished breath sounds bases with late inspiratory crackles bilateral lower chest Abdomen soft nontender, reducible hernia Skin no suspicious lesion Lower extremity no sinus clubbing no joint swelling or erythema Psych alert cooperative Neuro nonfocal Medical - H&P: Reslt - Labs CBC & Chem 7: 12/29/18 04:20 12/29/18 04:20 Labs: Short CBC 12/28/18 Range/Units 19:56 WBC 6.5 (4.5-11.0) K/mcL Hgb 16.4 H (12.0-15.0) g/dL Hct 50.3 H (36.0-48.0) % Plt Count 177 (140-440) K/mcL BMP 12/28/18 12/28/18 20:12 20:45 Sodium 142 TNP Potassium 3.8 TNP Chloride 100 TNP Carbon Dioxide 32 H TNP BUN 31 H TNP Creatinine 0.8 TNP Glucose 117 H TNP Calcium 9.1 TNP Liver Function 12/28/18 12/28/18 Range/Units 20:12 20:45 Total Bilirubin 0.3 TNP (0.0-1.0) mg/dL AST 42 H TNP (0-37) U/l ALT 27 TNP (0-40) U/l Alkaline Phosphatase 92 TNP (39-117) U/L Albumin 3.8 TNP (3.2-5.2) gm/dL Medical - H&P: A/P (1) Acute respiratory failure with hypoxia Current visit: Yes Status: Acute * Acute respiratory failure with hypoxia secondary to aspiration of esophageal contents-continue aspiration precautions/supplemental oxygen/pulmonary toilet. * Aspiration pneumonia secondary to esophageal stricture with resultant reflux - keep n.p.o. until ST eval/barium/elevate head end of bed Existing medical conditions-hold oral medications until speech eval * History of hypertension * Hyperlipidemia * Iron deficiency anemia * Anxiety disorder * GERD * Degenerative joint disease * History of glaucoma-continue timolol * DNR * Prophylaxis heparin Plan * Inpatient admission in light of PSI score 100. Anticipate minimum 2 midnight hospitalization * Aspiration precautions * Antibiotic coverage * Supplemental oxygen * PT OT/ST eval * Hold oral medication until able to swallow safely
[2018-12-28] MEDS ORDERED: MAGNESIUM SULFATE 2 GM/50 ML BAG IV PRN (23:29)
[2018-12-28] MEDS ORDERED: ONDANSETRON 4 MG/2 ML VIAL IV PRN (23:29)
[2018-12-28] MEDS ORDERED: MAGNESIUM HYDROXIDE 30 ML ORAL.SUSP PO PRN (23:29)
[2018-12-28] MEDS ORDERED: ACETAMINOPHEN 650 MG/65 ML BOTTLE IV PRN (23:29)
[2018-12-28] MEDS ORDERED: POTASSIUM CHLORIDE 20 MEQ PACKET PO PRN (23:29)
[2018-12-28] MEDS ORDERED: LEVALBUTEROL 0.63 MG/3 ML AMPUL.NEB NEB PRN (23:29)
[2018-12-28] MEDS ORDERED: IPRATROPIUM/ALBUTEROL 3 ML AMPUL.NEB NEB PRN (23:29)
[2018-12-29] MEDS: PIPERACILLIN SODIUM/TAZOBACTAM 3.375 GM in DEXTROSE 5% IN WATER 50 ML IV SCH ×2 (00:52→05:42)
[2018-12-29] MEDS: 0.9 % SODIUM CHLORIDE 10 ML SYRINGE IV SCH ×3 (05:54→20:52)
[2018-12-29 06:21] LABS: Hematocrit 45.1 % (36.0-48.0); Hemoglobin 14.7 g/dL (12.0-15.0); Mean Cell Volume 97.4 fL (80.0-100.0); Mean Corpuscular HGB Conc 32.6 g/dL (31.0-36.0); Mean Platelet Volume 7.9 fL (7.4-10.4); Platelet Count 167 K/mcL (140-440); RBC 4.63 M/mcL (4.00-5.20); Red Cell Distribution Width 14.6 % (11.5-14.5); WBC 6.2 K/mcL (4.5-11.0)
[2018-12-29 07:05] LABS: Bilirubin,Direct < 0.2 mg/dL (0.0-0.3); Chloride 101 mmol/L (96-108)
[2018-12-29 07:12] LABS: ALT/SGPT 20 U/l (0-40); AST/SGOT 36 U/l (0-37); Albumin 3.2 gm/dL (3.2-5.2); Albumin/Globulin Ratio 1.3 (1.0-2.3); Alkaline Phosphatase 75 U/L (39-117); Bilirubin,Total 0.3 mg/dL (0.0-1.0); Blood Urea Nitrogen 28 mg/dl (8-23); Calcium 8.7 mg/dl (8.6-10.4); Carbon Dioxide 27 mmol/L (22-30); Globulin 2.5 gm/dL (2.2-3.7); Glomerular Filtration Rate 78; Glucose 82 mg/dL (70-105); Lactate Dehydrogenase 319 U/L (94-250); Phosphorous 4.2 mg/dL (2.7-4.5); Triglycerides 154 mg/dl (<150); Uric Acid 5.1 mg/dL (2.5-8.0)
[2018-12-29 07:39] LABS: Anisocytosis FEW (NONE SEEN); Lymphocytes % 4 % (15-49); Monocytes % (Manual) 12 % (1-12); Myelocytes % 1 % (0-0); Platelet Estimate NORMAL (NORMAL); RBC Morphology ABNORM (NORMAL); Segmented Neutrophils % 83 % (38-78)
[2018-12-29] MEDS: HEPARIN 5,000 UNIT/ML VIAL SQ SCH ×2 (09:05→20:51)
[2018-12-29] MEDS: cefTRIAXone 1 GM VIAL IV SCH (09:05)
[2018-12-29] MEDS: MULTIVIT,THER IRON,CA,FA & MIN 1 TABLET PO SCH (09:05)
[2018-12-29] MEDS: DOCUSATE SODIUM 100 MG CAPSULE PO SCH ×2 (09:05→20:51)
[2018-12-29] MEDS ORDERED: SENNOSIDES 1 TABLET PO PRN (10:01)
[2018-12-29] MEDS ORDERED: LORazepam 0.5 MG TABLET PO PRN (10:01)
--- NOTE | 2018-12-29 10:02 | Internal Med Progress Note ---
Medical - PN: Subj Patient information: Note initiated : 12/29/18 at 10:00 am Service Date, if different from initiated Date: [] Patient: Kim Torres a 88 y/o F admitted on 12/28/18 for weakness. Chief Complaint: [] Interval history: Ms. Torres is a 88 year old F resident at [facility] with known history of esophageal stricture with intermittent dilatation in the past. She was taken to minor care with increasing shortness of breath, moist cough and dyspnea. Imaging was consistent with pneumonia she was sent to the ER for further evaluation. She is accompanied with her elder daughter Kika. She was able to answer most the question. She was initially fairly distressed with tachypnea and SOB requiring oxygen to maintain sats . Symptoms were about a week in onset with cough and dyspnea. She denies associated fever or shaking chills. She denies recent exposure to sick contacts, denies choking episodes. Initial work-up in the ER consistent with aspiration pneumonia/distended and fluid-filled esophagus with suspected stricture at GE level, she was promptly initiated on Rocephin/Zithromax coverage. Hospitalist service is consulted for admission in light of above At the time of evaluation patient is accompanied with her daughter. Most of the history is obtained from review of medical records/ER physician patient's daughter and patient herself. Patient does not appear distressed during my exam, I discussed patient's clinical status with patient's daughter and/ANTONIA San. I was advised to continue full medical treatment while keeping her DNR without any aggressive life saving interventions. 12/29-patient doing well this morning. Taking thickened liquids. Denies cough or chest pain. No overnight fever chills, hypoxia much improved now on 1 L oxygen. Restart home medications. Stable hemodynamics. Await ST eval and ecommendations. - Constitutional Vitals: Vital Signs Temp Pulse Resp BP Pulse Ox 98.3 F 72 16 156/79 94 12/29/18 07:33 12/28/18 23:57 12/29/18 07:33 12/29/18 07:33 12/29/18 07:33 Period Temp Pulse Resp BP Sys/Pineda Pulse Ox Last 24 Hr 96.8 F-98.3 F 60-77 16-36 133-172/71-121 86-99 Intake and Output 12/28/18 12/29/18 12/29/18 21:59 05:59 13:59 Intake Total 310 Output Total 200 Balance 110 Weight 85 lb 90 lb Intake & Output: Intake & Output 12/28/18 12/29/18 12/29/18 21:59 05:59 13:59 Intake Total 310 Output Total 200 Balance 110 Weight 85 lb 90 lb Intake: IV 300 Zithromax 500 mg In Dextrose 5% 250 in Water 250 ml @ 250 mls/hr IV ONCE ONE Rx#:[id number] Zosyn 3.375 gm In Dextrose 5% 50 in Water 50 ml @ 100 mls/hr IV Q6H LEO Rx#:[id number] Oral 10 Output: Void Amount 200 Other: Urine Appearance Clear Urine Color Pale General appearance: no acute distress Exam: Resting comfortably Tolerating thickened liquids On 1 L oxygen Able to talk in full sentences Minimally distended abdomen No anxiety Medical - PN: Obj Da - Labs CBC & Chem 7: 12/29/18 04:20 12/29/18 04:20 Labs: Abnormal Lab Results 12/29/18 12/29/18 12/28/18 04:20 04:20 20:45 Hgb Hct POC Hct 50.0 H RDW 14.6 H Gran % Lymph % (Auto) Lymph # (Auto) Seg Neutrophils % 83 H Lymphocytes % 4 L Myelocytes % 1 H RBC Morphology Abnorm A Anisocytosis Few A Carbon Dioxide POC Total CO2 33 H POC BUN 32 H BUN 28 H Glucose POC Glucose 116 H POC WB Ioniz Calcium 1.10 L AST Lactate Dehydrogenase 319 H NT-Pro-B Natriuret Pep Total Protein 5.7 L Triglycerides 154 H 12/28/18 12/28/18 20:12 19:56 Hgb 16.4 H Hct 50.3 H POC Hct RDW 14.7 H Gran % 80.0 H Lymph % (Auto) 8.8 L Lymph # (Auto) 0.6 L Seg Neutrophils % Lymphocytes % Myelocytes % RBC Morphology Anisocytosis Carbon Dioxide 32 H POC Total CO2 POC BUN BUN 31 H Glucose 117 H POC Glucose POC WB Ioniz Calcium AST 42 H Lactate Dehydrogenase NT-Pro-B Natriuret Pep 87657.0 H Total Protein Triglycerides Meds: Medications Acetaminophen (Tylenol) 650 mg PO Q4-6HP PRN; Protocol PRN Reason: Per Pain Protocol/Fever > 101 Albuterol/Ipratropium (Duoneb) 3 ml NEB Q4HP PRN PRN Reason: Shortness Of Breath Ceftriaxone Sodium (Rocephin) 1 gm IV Q24H [facility]; Protocol Last Admin: 12/29/18 09:05 Dose: 1 gm Documented by: Docusate Sodium (Colace) 100 mg PO BID [facility] Last Admin: 12/29/18 09:05 Dose: Not Given Documented by: Heparin Sodium (Porcine) (Heparin) 5,000 unit SQ Q12 [facility] Last Admin: 12/29/18 09:05 Dose: 5,000 unit Documented by: Acetaminophen (Ofirmev) 650 mg in 65 mls @ 130 mls/hr IV Q6HP PRN; Protocol PRN Reason: Per Pain Protocol/Fever > 101 Magnesium Sulfate (Magnesium Sulfate) 2 gm in 50 mls @ 50 mls/hr IV UD PRN PRN Reason: MG = or < 1.7 Piperacillin Sod/Tazobactam (Sod 2.25 gm/ Dextrose) 50 mls @ 100 mls/hr IV Q6H [facility] Iron Carb/Multivit/[place]/Folic Acid (Multivitamin W/Minerals) 1 tab PO DAILY [facility] Last Admin: 12/29/18 09:05 Dose: Not Given Documented by: Levalbuterol HCl (Xopenex) 0.63 mg NEB Q4HP PRN PRN Reason: Shortness Of Breath Magnesium Hydroxide (Milk Of Magnesia) 30 ml PO HSP PRN PRN Reason: Constipation Ondansetron HCl (Zofran) 4 mg IV Q4-6HP PRN; Protocol PRN Reason: Nausea And Vomiting Potassium Chloride (Klor-Con) 40 meq PO DAILYP PRN PRN Reason: K+ < 3.5 Senna/Docusate Sodium (Senna Plus Tablet) 1 tab PO HS [facility] Sodium Chloride (Saline Flush) 10 ml IV Q8 [facility] Last Admin: 12/29/18 05:54 Dose: 10 ml Documented by: Medical - PN: A/P - Time Spent With Patient Total time spent is greater than 50% in coordination of care (as documented) at patient's floor/unit and/or counseling patient: 25 - 35 minutes (1) Acute respiratory failure with hypoxia Status: Acute Assessment and plan: * Acute respiratory failure with hypoxia secondary to aspiration of esophageal contents-clinically improving with ongoing aspiration precautions/supplemental oxygen/pulmonary toilet. * Aspiration pneumonia secondary to esophageal stricture with resultant reflux -continue antibiotic coverage. Await ST eval/recommendations Existing medical conditions-hold oral medications until speech eval * History of hypertension-restart metoprolol * Hyperlipidemia start statin * Iron deficiency anemia * Anxiety disorder continue sertraline/benzodiazepine at home dose * GERD continue PPI * Degenerative joint disease on home dose hydrocodone * History of glaucoma-continue timolol * DNR * Prophylaxis heparin Plan * Pulmonary toilet/diet per ST recommendation/elevate HOB and aspiration precaution * Continue antibiotic coverage * Wean oxygen as tolerated * PT OT/dietary consult * Pre-existing medical condition management on home meds Current Visit: Yes
[2018-12-29] MEDS: POLYETHYLENE GLYCOL 3350 17 GM PACKET PO SCH (10:38)
[2018-12-29] MEDS: PANTOPRAZOLE 40 MG TABLET PO SCH ×2 (10:38→16:58)
[2018-12-29] MEDS: SERTRALINE 100 MG TABLET PO SCH (10:38)
[2018-12-29] MEDS: METOPROLOL TARTRATE 25 MG TABLET PO SCH (10:38)
[2018-12-29] MEDS: ASPIRIN 81 MG TAB.CHEW PO SCH (10:38)
[2018-12-29] MEDS: FUROSEMIDE 40 MG TABLET PO SCH (10:38)
[2018-12-29] MEDS: PIPERACILLIN SODIUM/TAZOBACTAM 2.25 GM in DEXTROSE 5% IN WATER 50 ML IV SCH ×2 (11:48→17:29)
[2018-12-29] MEDS: ACETAMINOPHEN 325 MG TABLET PO PRN (12:35)
[2018-12-29] MEDS: TIMOLOL OU SCH ×2 (14:58→20:51)
[2018-12-29] MEDS: DORZOLAMIDE OU SCH ×2 (14:58→20:51)
[2018-12-29] MEDS: HYDROcodone/APAP 5/325MG TABLET PO SCH (20:50)
[2018-12-29] MEDS: tiZANidine 4 MG TABLET PO SCH (20:51)
[2018-12-29] MEDS: SENNOSIDES/DOCUSATE SODIUM 1 TAB TABLET PO SCH (20:51)
[2018-12-29] MEDS: SIMVASTATIN 20 MG TABLET PO SCH (20:51)
[2018-12-29] MEDS ORDERED: NON FORMULARY MEDICATION 1 DOSE MISCELL (Lansoprazole [Prevacid] 30 MG) PO SCH (21:00)
[2018-12-30] MEDS: PIPERACILLIN SODIUM/TAZOBACTAM 2.25 GM in DEXTROSE 5% IN WATER 50 ML IV SCH ×4 (00:41→17:23)
[2018-12-30] MEDS: 0.9 % SODIUM CHLORIDE 10 ML SYRINGE IV SCH ×3 (05:54→18:51)
[2018-12-30 06:16] LABS: Hematocrit 42.5 % (36.0-48.0); Hemoglobin 14.1 g/dL (12.0-15.0); Mean Cell Volume 97.4 fL (80.0-100.0); Mean Corpuscular HGB Conc 33.2 g/dL (31.0-36.0); Mean Platelet Volume 7.7 fL (7.4-10.4); Platelet Count 141 K/mcL (140-440); RBC 4.36 M/mcL (4.00-5.20); Red Cell Distribution Width 14.1 % (11.5-14.5); WBC 5.6 K/mcL (4.5-11.0)
[2018-12-30 06:54] LABS: Eosinophils % (Manual) 2 % (0-7); Lymphocytes % 6 % (15-49); Monocytes % (Manual) 11 % (1-12); Platelet Estimate NORMAL (NORMAL); RBC Morphology NORMAL (NORMAL); Segmented Neutrophils % 81 % (38-78)
[2018-12-30 06:55] LABS: ALT/SGPT 17 U/l (0-40); AST/SGOT 28 U/l (0-37); Albumin 3.4 gm/dL (3.2-5.2); Albumin/Globulin Ratio 1.4 (1.0-2.3); Alkaline Phosphatase 74 U/L (39-117); Bilirubin,Direct < 0.2 mg/dL (0.0-0.3); Bilirubin,Total 0.3 mg/dL (0.0-1.0); Calcium 8.6 mg/dl (8.6-10.4); Chloride 98 mmol/L (96-108); Globulin 2.4 gm/dL (2.2-3.7); Glomerular Filtration Rate 67; Glucose 90 mg/dL (70-105); Lactate Dehydrogenase 213 U/L (94-250); Phosphorous 3.7 mg/dL (2.7-4.5); Triglycerides 102 mg/dl (<150); Uric Acid 4.3 mg/dL (2.5-8.0)
[2018-12-30 06:56] LABS: Blood Urea Nitrogen 22 mg/dl (8-23); Carbon Dioxide 33 mmol/L (22-30)
[2018-12-30] MEDS: POLYETHYLENE GLYCOL 3350 17 GM PACKET PO SCH (08:46)
[2018-12-30] MEDS: FUROSEMIDE 40 MG TABLET PO SCH (08:46)
[2018-12-30] MEDS: PANTOPRAZOLE 40 MG TABLET PO SCH ×2 (08:47→17:22)
[2018-12-30] MEDS: DOCUSATE SODIUM 100 MG CAPSULE PO SCH ×2 (08:47→21:18)
[2018-12-30] MEDS: METOPROLOL TARTRATE 25 MG TABLET PO SCH (08:47)
[2018-12-30] MEDS: POTASSIUM CHLORIDE 20 MEQ TABLET PO SCH (08:47)
[2018-12-30] MEDS: HYDROcodone/APAP 5/325MG TABLET PO SCH ×2 (08:47→21:14)
[2018-12-30] MEDS: ASPIRIN 81 MG TAB.CHEW PO SCH (08:47)
[2018-12-30] MEDS: MULTIVIT,THER IRON,CA,FA & MIN 1 TABLET PO SCH (08:48)
[2018-12-30] MEDS: TIMOLOL OU SCH ×2 (08:48→21:19)
[2018-12-30] MEDS: SERTRALINE 100 MG TABLET PO SCH (08:48)
[2018-12-30] MEDS: DORZOLAMIDE OU SCH ×2 (08:48→21:19)
[2018-12-30] MEDS: HEPARIN 5,000 UNIT/ML VIAL SQ SCH ×2 (08:48→21:16)
[2018-12-30] MEDS: predniSONE 5 MG TABLET PO SCH (08:55)
[2018-12-30] MEDS: cefTRIAXone 1 GM VIAL IV SCH (10:06)
[2018-12-30] MEDS: ACETAMINOPHEN 325 MG TABLET PO PRN (12:37)
--- NOTE | 2018-12-30 14:39 | XRay Report ---
CLINICAL INFORMATION: Cough COMPARISON: 12/28/2018 FINDINGS: Moderate cardiomegaly unchanged. Moderate distention of the esophagus with fluid in the distal esophagus - as before. The right hilum seen to better advantage on today's film appears mildly enlarged when compared to older baseline studies from 2013. While this likely represents asymmetric enlargement of the right pulmonary artery, the possibility of a mass or adenopathy should be entertained. The remaining pulmonary arteries are unremarkable. Small left pleural effusion noted IMPRESSION: 1. Right hilar enlargement - please see above. While this likely represents asymmetric right pulmonary artery enlargement, the possibility of mass or adenopathy should be excluded. Consider chest CT 2. Moderate dilatation of the esophagus suspect stricture at the GE junction 3. No definite infiltrate or other acute process Interpreted and Authenticated by: Eliseo Oliver 12/30/18
[2018-12-30] MEDS: METOPROLOL TARTRATE 50 MG TABLET PO SCH ×2 (18:11→21:18)
--- NOTE | 2018-12-30 20:22 | Internal Med Progress Note ---
Medical - PN: Subj Patient information: Note initiated : 12/30/18 at 8:20 pm Service Date, if different from initiated Date: [] Patient: Kim Torres a 88 y/o F admitted on 12/28/18 for weakness. Chief Complaint: [] Interval history: Ms. Torres is a 88 year old F resident at [facility] with known history of esophageal stricture with intermittent dilatation in the past. She was taken to minor care with increasing shortness of breath, moist cough and dyspnea. Imaging was consistent with pneumonia she was sent to the ER for further evaluation. She is accompanied with her elder daughter Kika. She was able to answer most the question. She was initially fairly distressed with tachypnea and SOB requiring oxygen to maintain sats . Symptoms were about a week in onset with cough and dyspnea. She denies associated fever or shaking chills. She denies recent exposure to sick contacts, denies choking episodes. Initial work-up in the ER consistent with aspiration pneumonia/distended and f luid-filled esophagus with suspected stricture at GE level, she was promptly initiated on Rocephin/Zithromax coverage. Hospitalist service is consulted for admission in light of above At the time of evaluation patient is accompanied with her daughter. Most of the history is obtained from review of medical records/ER physician patient's daughter and patient herself. Patient does not appear distressed during my exam, I discussed patient's clinical status with patient's daughter and/ANTONIA San. I was advised to continue full medical treatment while keeping her DNR without any aggressive life saving interventions. 12/29-patient doing well this morning. Taking thickened liquids. Denies cough or chest pain. No overnight fever chills, hypoxia much improved now on 1 L oxygen. Restart home medications. Stable hemodynamics. Await ST eval and ecommendations. 12/30-patient clinically improved. On continued antibiotic coverage. No overnight fever chills or concerns per staff except for elevated blood pressures. Potassium down to 3.1 currently on replacement. On 1 L oxygen. Continue dysphagia diet. Await ST eval. Antihypertensives restarted. - Constitutional Vitals: Vital Signs Temp Pulse Resp BP Pulse Ox 98.0 F 84 24 H 171/88 94 12/30/18 18:55 12/30/18 18:55 12/30/18 18:55 12/30/18 18:55 12/30/18 19:12 Period Temp Pulse Resp BP Sys/Pineda Pulse Ox Last 24 Hr 97.4 F-99.5 F 76-84 16-26 166-209/85-120 90-99 Intake and Output 12/30/18 12/30/18 12/30/18 05:59 13:59 21:59 Intake Total 50 420 580 Output Total 750 200 Balance -700 420 380 Intake & Output: Intake & Output 12/30/18 12/30/18 12/30/18 05:59 13:59 21:59 Intake Total 50 420 580 Output Total 750 200 Balance -700 420 380 Intake: IV 50 100 Zosyn 2.25 gm In Dextrose 5% in 50 100 Water 50 ml @ 100 mls/hr IV Q6H [facility] Rx#:[id number] Oral 0 320 580 Output: Void Amount 750 200 Other: Meal Breakfast Dinner Percent of Meal Consumed 75% 75% Feeding Ability Independent Independent Urine Appearance Clear Clear Urine Color Dark Yellow Dark Yellow Bright Yellow Urine Odor Normal Stool Size Moderate Small Stool Color Brown Brown Stool Consistency Soft Soft # Bowel Movements 1 1 General appearance: no acute distress Exam: Alert oriented Nonlabored breathing No anxiety Nondistended abdomen Medical - PN: Obj Da - Labs CBC & Chem 7: 12/30/18 04:25 12/30/18 04:25 Labs: Abnormal Lab Results 12/30/18 12/30/18 12/29/18 04:25 04:25 04:20 Hgb Hct POC Hct RDW Gran % Lymph % (Auto) Lymph # (Auto) Seg Neutrophils % 81 H Lymphocytes % 6 L Myelocytes % RBC Morphology Anisocytosis Potassium 3.1 L Carbon Dioxide 33 H POC Total CO2 POC BUN BUN 28 H Glucose POC Glucose POC WB Ioniz Calcium AST Lactate Dehydrogenase 319 H NT-Pro-B Natriuret Pep Total Protein 5.8 L 5.7 L Triglycerides 154 H 12/29/18 12/28/18 12/28/18 04:20 20:45 20:12 Hgb Hct POC Hct 50.0 H RDW 14.6 H Gran % Lymph % (Auto) Lymph # (Auto) Seg Neutrophils % 83 H Lymphocytes % 4 L Myelocytes % 1 H RBC Morphology Abnorm A Anisocytosis Few A Potassium Carbon Dioxide 32 H POC Total CO2 33 H POC BUN 32 H BUN 31 H Glucose 117 H POC Glucose 116 H POC WB Ioniz Calcium 1.10 L AST 42 H Lactate Dehydrogenase NT-Pro-B Natriuret Pep 70520.0 H Total Protein Triglycerides 12/28/18 19:56 Hgb 16.4 H Hct 50.3 H POC Hct RDW 14.7 H Gran % 80.0 H Lymph % (Auto) 8.8 L Lymph # (Auto) 0.6 L Seg Neutrophils % Lymphocytes % Myelocytes % RBC Morphology Anisocytosis Potassium Carbon Dioxide POC Total CO2 POC BUN BUN Glucose POC Glucose POC WB Ioniz Calcium AST Lactate Dehydrogenase NT-Pro-B Natriuret Pep Total Protein Triglycerides Meds: Medications Acetaminophen (Tylenol) 650 mg PO Q4-6HP PRN; Protocol PRN Reason: Per Pain Protocol/Fever > 101 Last Admin: 12/30/18 12:37 Dose: 650 mg Documented by: Hydrocodone Bitart/Acetaminophen ([place] 5/325mg) 1 tab PO BID [facility]; Protocol Last Admin: 12/30/18 08:47 Dose: 1 tab Documented by: Albuterol/Ipratropium (Duoneb) 3 ml NEB Q4HP PRN PRN Reason: Shortness Of Breath Aspirin (Aspirin) 81 mg PO QDAY [facility] Last Admin: 12/30/18 08:47 Dose: 81 mg Documented by: Ceftriaxone Sodium (Rocephin) 1 gm IV Q24H [facility]; Protocol Last Admin: 12/30/18 10:06 Dose: 1 gm Documented by: Docusate Sodium (Colace) 100 mg PO BID [facility] Last Admin: 12/30/18 08:47 Dose: 100 mg Documented by: Furosemide (Lasix) 40 mg PO QAM [facility] Last Admin: 12/30/18 08:46 Dose: 40 mg Documented by: Heparin Sodium (Porcine) (Heparin) 5,000 unit SQ Q12 [facility] Last Admin: 12/30/18 08:48 Dose: 5,000 unit Documented by: Hydralazine HCl (Apresoline) 10 - 20 mg IV Q4HP PRN PRN Reason: Hypertension Acetaminophen (Ofirmev) 650 mg in 65 mls @ 130 mls/hr IV Q6HP PRN; Protocol PRN Reason: Per Pain Protocol/Fever > 101 Magnesium Sulfate (Magnesium Sulfate) 2 gm in 50 mls @ 50 mls/hr IV UD PRN PRN Reason: MG = or < 1.7 Piperacillin Sod/Tazobactam (Sod 2.25 gm/ Dextrose) 50 mls @ 100 mls/hr IV Q6H [facility] Last Admin: 12/30/18 17:23 Dose: 100 mls/hr Documented by: Iron Carb/Multivit/[place]/Folic Acid (Multivitamin W/Minerals) 1 tab PO DAILY [facility] Last Admin: 12/30/18 08:48 Dose: 1 tab Documented by: Levalbuterol HCl (Xopenex) 0.63 mg NEB Q4HP PRN PRN Reason: Shortness Of Breath Lorazepam (Ativan) 0.25 mg PO HSP PRN PRN Reason: Anxiety Last Admin: 12/30/18 17:40 Dose: 0.25 mg Documented by: Magnesium Hydroxide (Milk Of Magnesia) 30 ml PO HSP PRN PRN Reason: Constipation Metoprolol Tartrate (Lopressor) 50 mg PO BID [facility] Last Admin: 12/30/18 18:11 Dose: 50 mg Documented by: Ondansetron HCl (Zofran) 4 mg IV Q4-6HP PRN; Protocol PRN Reason: Nausea And Vomiting Pantoprazole Sodium (Protonix) 40 mg PO BIDAC [facility] Last Admin: 12/30/18 17:22 Dose: 40 mg Documented by: Dorzolamide-Timolol (Ophth Dps) 1 dose OU BID [facility] Last Admin: 12/30/18 08:48 Dose: Not Given Documented by: Polyethylene Glycol (Miralax) 17 gm PO DAILY [facility] Last Admin: 12/30/18 08:46 Dose: 17 gm Documented by: Potassium Chloride (Klor-Con) 40 meq PO DAILYP PRN PRN Reason: K+ < 3.5 Last Admin: 12/30/18 17:21 Dose: 40 meq Documented by: Potassium Chloride (Kdur) 20 meq PO QAMCC [facility] Last Admin: 12/30/18 08:47 Dose: 20 meq Documented by: Prednisone (Prednisone) 5 mg PO Q48H [facility] Last Admin: 12/30/18 08:55 Dose: 5 mg Documented by: Senna/Docusate Sodium (Senna Plus Tablet) 1 tab PO HS [facility] Last Admin: 12/29/18 20:51 Dose: 1 tab Documented by: Sertraline HCl (Zoloft) 100 mg PO QDAY [facility] Last Admin: 12/30/18 08:48 Dose: 100 mg Documented by: Simvastatin (Zocor) 20 mg PO QHS [facility] Last Admin: 12/29/18 20:51 Dose: 20 mg Documented by: Sodium Chloride (Saline Flush) 10 ml IV Q8 [facility] Last Admin: 12/30/18 18:51 Dose: 10 ml Documented by: Tizanidine HCl (Zanaflex) 4 mg PO QHS [facility] Last Admin: 12/29/18 20:51 Dose: 4 mg Documented by: Medical - PN: A/P - Time Spent With Patient Total time spent is greater than 50% in coordination of care (as documented) at patient's floor/unit and/or counseling patient: 25 - 35 minutes (1) Acute respiratory failure with hypoxia Status: Acute Assessment and plan: * Acute respiratory failure with hypoxia secondary to aspiration of esophageal contents-clinically improving with ongoing aspiration precautions/supplemental oxygen/pulmonary toilet. * Aspiration pneumonia secondary to esophageal stricture with resultant reflux -continue antibiotic coverage. Await ST eval/recommendations. Will need outpatient GI follow-up * Suboptimally controlled hypertension-increase metoprolol to 50/as needed hydralazine * Hyperlipidemia continue statin * Iron deficiency anemia * Anxiety disorder stable on sertraline/benzodiazepine * GERD continue PPI * Degenerative joint disease on home dose hydrocodone * History of glaucoma-continue timolol * DNR * Prophylaxis heparin Plan * Continue pulmonary toilet/dysphagia diet * elevate HOB and aspiration precaution * De-escalate antibiotics in 24 hours e * Wean oxygen as tolerated * PT OT/dietary consult * Pre-existing medical condition management on home meds * Discharge planning per case Current Visit: Yes
[2018-12-30] MEDS: tiZANidine 4 MG TABLET PO SCH (21:14)
[2018-12-30] MEDS: SIMVASTATIN 20 MG TABLET PO SCH (21:15)
[2018-12-30] MEDS: SENNOSIDES/DOCUSATE SODIUM 1 TAB TABLET PO SCH (21:19)
[2018-12-31] MEDS: 0.9 % SODIUM CHLORIDE 10 ML SYRINGE IV SCH ×4 (00:06→23:53)
[2018-12-31] MEDS: PIPERACILLIN SODIUM/TAZOBACTAM 2.25 GM in DEXTROSE 5% IN WATER 50 ML IV SCH ×5 (00:07→23:53)
[2018-12-31] MEDS: hydrALAZINE 20 MG/ML VIAL IV PRN (00:30)
[2018-12-31 05:42] LABS: Hematocrit 47.1 % (36.0-48.0); Hemoglobin 15.4 g/dL (12.0-15.0); Mean Cell Volume 97.9 fL (80.0-100.0); Mean Corpuscular HGB Conc 32.8 g/dL (31.0-36.0); Mean Platelet Volume 7.6 fL (7.4-10.4); Platelet Count 161 K/mcL (140-440); RBC 4.81 M/mcL (4.00-5.20); Red Cell Distribution Width 14.6 % (11.5-14.5); WBC 6.7 K/mcL (4.5-11.0)
[2018-12-31 06:02] LABS: ALT/SGPT 16 U/l (0-40); AST/SGOT 29 U/l (0-37); Albumin 3.8 gm/dL (3.2-5.2); Albumin/Globulin Ratio 1.5 (1.0-2.3); Alkaline Phosphatase 76 U/L (39-117); Bilirubin,Direct < 0.2 mg/dL (0.0-0.3); Bilirubin,Total 0.3 mg/dL (0.0-1.0); Blood Urea Nitrogen 20 mg/dl (8-23); Calcium 9.2 mg/dl (8.6-10.4); Carbon Dioxide 38 mmol/L (22-30); Chloride 97 mmol/L (96-108); Globulin 2.6 gm/dL (2.2-3.7); Glomerular Filtration Rate 67; Glucose 103 mg/dL (70-105); Lactate Dehydrogenase 219 U/L (94-250); Phosphorous 3.7 mg/dL (2.7-4.5); Triglycerides 104 mg/dl (<150); Uric Acid 4.2 mg/dL (2.5-8.0)
[2018-12-31 06:34] LABS: Eosinophils % (Manual) 2 % (0-7); Lymphocytes % 7 % (15-49); Monocytes % (Manual) 14 % (1-12); Platelet Estimate NORMAL (NORMAL); RBC Morphology NORMAL (NORMAL); Segmented Neutrophils % 77 % (38-78)
[2018-12-31] MEDS: PANTOPRAZOLE 40 MG TABLET PO SCH ×2 (08:19→17:31)
[2018-12-31] MEDS: POTASSIUM CHLORIDE 20 MEQ TABLET PO SCH (08:20)
[2018-12-31] MEDS: FUROSEMIDE 40 MG TABLET PO SCH ×2 (10:13→11:00)
[2018-12-31] MEDS: METOPROLOL TARTRATE 50 MG TABLET PO SCH ×2 (10:13→21:51)
[2018-12-31] MEDS: MULTIVIT,THER IRON,CA,FA & MIN 1 TABLET PO SCH (10:14)
[2018-12-31] MEDS: ASPIRIN 81 MG TAB.CHEW PO SCH (10:14)
[2018-12-31] MEDS: HYDROcodone/APAP 5/325MG TABLET PO SCH ×2 (10:14→21:51)
[2018-12-31] MEDS: SERTRALINE 100 MG TABLET PO SCH (10:14)
[2018-12-31] MEDS: cefTRIAXone 1 GM VIAL IV SCH (10:16)
[2018-12-31] MEDS: HEPARIN 5,000 UNIT/ML VIAL SQ SCH ×2 (10:16→21:53)
[2018-12-31] MEDS: FUROSEMIDE 20 MG/2 ML VIAL IV SCH ×2 (10:34→17:31)
[2018-12-31] MEDS: TIMOLOL OU SCH ×3 (10:39→21:54)
[2018-12-31] MEDS: DORZOLAMIDE OU SCH ×3 (10:39→21:54)
[2018-12-31] MEDS: DOCUSATE SODIUM 100 MG CAPSULE PO SCH ×2 (12:51→21:55)
[2018-12-31] MEDS: POLYETHYLENE GLYCOL 3350 17 GM PACKET PO SCH (12:52)
--- NOTE | 2018-12-31 13:44 | Internal Med Progress Note ---
Medical - PN: Subj Patient information: Note initiated : 12/31/18 at 1:41 pm Service Date, if different from initiated Date: [] Patient: Kim Torres a 88 y/o F admitted on 12/28/18 for weakness. Chief Complaint: [] Interval history: Ms. Torres is a 88 year old F resident at [facility] [place] with known history of esophageal stricture with intermittent dilatation in the past. She was taken to minor care with increasing shortness of breath, moist cough and dyspnea. Imaging was consistent with pneumonia she was sent to the ER for further evaluation. She is accompanied with her elder daughter Kika. She was able to answer most the question. She was initially fairly distressed with tachypnea and SOB requiring oxygen to maintain sats . Symptoms were about a week in onset with cough and dyspnea. She denies associated fever or shaking chills. She denies recent exposure to sick contacts, denies choking episodes. Initial work-up in the ER consistent with aspiration pneumonia/distended and f luid-filled esophagus with suspected stricture at GE level, she was promptly initiated on Rocephin/Zithromax coverage. Hospitalist service is consulted for admission in light of above At the time of evaluation patient is accompanied with her daughter. Most of the history is obtained from review of medical records/ER physician patient's daughter and patient herself. Patient does not appear distressed during my exam, I discussed patient's clinical status with patient's daughter and/ANTONIA San. I was advised to continue full medical treatment while keeping her DNR without any aggressive life saving interventions. 12/29-patient doing well this morning. Taking thickened liquids. Denies cough or chest pain. No overnight fever chills, hypoxia much improved now on 1 L oxygen. Restart home medications. Stable hemodynamics. Await ST eval and ecommendations. 12/30-patient clinically improved. On continued antibiotic coverage. No overnight fever chills or concerns per staff except for elevated blood pressures. Potassium down to 3.1 currently on replacement. On 1 L oxygen. Continue dysphagia diet. Await ST eval. Antihypertensives restarted. 12/31-patient complains of lower extremity swelling. No overnight fever chills. No concerns per staff other than lower ext white count 9.6 extremity swelling. Antibiotics ongoing. Currently on room air. White count down to 9.6. - Constitutional Vitals: Vital Signs Temp Pulse Resp BP Pulse Ox 99 F 63 14 143/78 94 12/31/18 12:00 12/31/18 12:00 12/31/18 12:00 12/31/18 12:00 12/31/18 12:00 Period Temp Pulse Resp BP Sys/Pineda Pulse Ox Last 24 Hr 97.4 F-99 F 63-84 14-24 143-209/78-120 92-98 Intake and Output 12/30/18 12/31/18 12/31/18 21:59 05:59 13:59 Intake Total 630 200 550 Output Total 550 500 350 Balance 80 -300 200 Weight 93 lb Intake & Output: Intake & Output 12/30/18 12/31/18 12/31/18 21:59 05:59 13:59 Intake Total 630 200 550 Output Total 550 500 350 Balance 80 -300 200 Weight 93 lb Intake: IV 50 50 50 Zosyn 2.25 gm In Dextrose 5% in 50 50 50 Water 50 ml @ 100 mls/hr IV Q6H [facility] Rx#:[id number] Oral 580 150 500 Output: Void Amount 550 500 350 Other: Meal Dinner Lunch Percent of Meal Consumed 75% 75% Feeding Ability Independent Independent Urine Appearance Clear Urine Color Bright Yellow Bright Yellow Urine Odor Normal Normal Stool Size Small Moderate Stool Color Brown Brown Stool Consistency Soft Soft # Voids 1 # Bowel Movements 1 General appearance: no acute distress Exam: Alert oriented Nonlabored breathing No anxiety Lymphedema improving Medical - PN: Obj Da - Labs CBC & Chem 7: 12/31/18 04:20 12/31/18 04:20 Labs: Abnormal Lab Results 12/31/18 12/31/18 12/30/18 04:20 04:20 04:25 Hgb 15.4 H Hct POC Hct RDW 14.6 H Gran % Lymph % (Auto) Lymph # (Auto) Seg Neutrophils % Lymphocytes % 7 L Monocytes % (Manual) 14 H Myelocytes % RBC Morphology Anisocytosis Potassium 3.1 L Carbon Dioxide 38 H 33 H POC Total CO2 POC BUN BUN Glucose POC Glucose POC WB Ioniz Calcium AST Lactate Dehydrogenase NT-Pro-B Natriuret Pep Total Protein 5.8 L Triglycerides 12/30/18 12/29/18 12/29/18 04:25 04:20 04:20 Hgb Hct POC Hct RDW 14.6 H Gran % Lymph % (Auto) Lymph # (Auto) Seg Neutrophils % 81 H 83 H Lymphocytes % 6 L 4 L Monocytes % (Manual) Myelocytes % 1 H RBC Morphology Abnorm A Anisocytosis Few A Potassium Carbon Dioxide POC Total CO2 POC BUN BUN 28 H Glucose POC Glucose POC WB Ioniz Calcium AST Lactate Dehydrogenase 319 H NT-Pro-B Natriuret Pep Total Protein 5.7 L Triglycerides 154 H 12/28/18 12/28/18 12/28/18 20:45 20:12 19:56 Hgb 16.4 H Hct 50.3 H POC Hct 50.0 H RDW 14.7 H Gran % 80.0 H Lymph % (Auto) 8.8 L Lymph # (Auto) 0.6 L Seg Neutrophils % Lymphocytes % Monocytes % (Manual) Myelocytes % RBC Morphology Anisocytosis Potassium Carbon Dioxide 32 H POC Total CO2 33 H POC BUN 32 H BUN 31 H Glucose 117 H POC Glucose 116 H POC WB Ioniz Calcium 1.10 L AST 42 H Lactate Dehydrogenase NT-Pro-B Natriuret Pep 11935.0 H Total Protein Triglycerides Meds: Medications Acetaminophen (Tylenol) 650 mg PO Q4-6HP PRN; Protocol PRN Reason: Per Pain Protocol/Fever > 101 Last Admin: 12/30/18 12:37 Dose: 650 mg Documented by: Hydrocodone Bitart/Acetaminophen ([place] 5/325mg) 1 tab PO BID [facility]; Protocol Last Admin: 12/31/18 10:14 Dose: 1 tab Documented by: Albuterol/Ipratropium (Duoneb) 3 ml NEB Q4HP PRN PRN Reason: Shortness Of Breath Aspirin (Aspirin) 81 mg PO QDAY [facility] Last Admin: 12/31/18 10:14 Dose: 81 mg Documented by: Ceftriaxone Sodium (Rocephin) 1 gm IV Q24H [facility]; Protocol Last Admin: 12/31/18 10:16 Dose: 1 gm Documented by: Docusate Sodium (Colace) 100 mg PO BID [facility] Last Admin: 12/31/18 12:51 Dose: Not Given Documented by: Furosemide (Lasix) 20 mg IV BIDD [facility] Last Admin: 12/31/18 10:34 Dose: 20 mg Documented by: Heparin Sodium (Porcine) (Heparin) 5,000 unit SQ Q12 [facility] Last Admin: 12/31/18 10:16 Dose: 5,000 unit Documented by: Hydralazine HCl (Apresoline) 10 - 20 mg IV Q4HP PRN PRN Reason: Hypertension Last Admin: 12/31/18 00:30 Dose: 10 mg Documented by: Acetaminophen (Ofirmev) 650 mg in 65 mls @ 130 mls/hr IV Q6HP PRN; Protocol PRN Reason: Per Pain Protocol/Fever > 101 Magnesium Sulfate (Magnesium Sulfate) 2 gm in 50 mls @ 50 mls/hr IV UD PRN PRN Reason: MG = or < 1.7 Piperacillin Sod/Tazobactam (Sod 2.25 gm/ Dextrose) 50 mls @ 100 mls/hr IV Q6H [facility] Last Admin: 12/31/18 12:23 Dose: 100 mls/hr Documented by: Iron Carb/Multivit/[place]/Folic Acid (Multivitamin W/Minerals) 1 tab PO DAILY [facility] Last Admin: 12/31/18 10:14 Dose: 1 tab Documented by: Levalbuterol HCl (Xopenex) 0.63 mg NEB Q4HP PRN PRN Reason: Shortness Of Breath Lorazepam (Ativan) 0.25 mg PO HSP PRN PRN Reason: Anxiety Last Admin: 12/30/18 17:40 Dose: 0.25 mg Documented by: Magnesium Hydroxide (Milk Of Magnesia) 30 ml PO HSP PRN PRN Reason: Constipation Metoprolol Tartrate (Lopressor) 50 mg PO BID [facility] Last Admin: 12/31/18 10:13 Dose: 50 mg Documented by: Ondansetron HCl (Zofran) 4 mg IV Q4-6HP PRN; Protocol PRN Reason: Nausea And Vomiting Pantoprazole Sodium (Protonix) 40 mg PO BIDAC [facility] Last Admin: 12/31/18 08:19 Dose: 40 mg Documented by: Dorzolamide-Timolol (Ophth Dps) 1 dose OU BID [facility] Last Admin: 12/31/18 10:39 Dose: Not Given Documented by: Polyethylene Glycol (Miralax) 17 gm PO DAILY [facility] Last Admin: 12/31/18 12:52 Dose: Not Given Documented by: Potassium Chloride (Klor-Con) 40 meq PO DAILYP PRN PRN Reason: K+ < 3.5 Last Admin: 12/30/18 17:21 Dose: 40 meq Documented by: Potassium Chloride (Kdur) 20 meq PO QAMCC [facility] Last Admin: 12/31/18 08:20 Dose: 20 meq Documented by: Prednisone (Prednisone) 5 mg PO Q48H [facility] Last Admin: 12/30/18 08:55 Dose: 5 mg Documented by: Senna/Docusate Sodium (Senna Plus Tablet) 1 tab PO HS [facility] Last Admin: 12/30/18 21:19 Dose: Not Given Documented by: Sertraline HCl (Zoloft) 100 mg PO QDAY [facility] Last Admin: 12/31/18 10:14 Dose: 100 mg Documented by: Simvastatin (Zocor) 20 mg PO QHS [facility] Last Admin: 12/30/18 21:15 Dose: 20 mg Documented by: Sodium Chloride (Saline Flush) 10 ml IV Q8 [facility] Last Admin: 12/31/18 05:57 Dose: 10 ml Documented by: Tizanidine HCl (Zanaflex) 4 mg PO QHS [facility] Last Admin: 12/30/18 21:14 Dose: 4 mg Documented by: Medical - PN: A/P - Time Spent With Patient Total time spent is greater than 50% in coordination of care (as documented) at patient's floor/unit and/or counseling patient: 15 - 24 minutes (1) Acute respiratory failure with hypoxia Status: Acute Assessment and plan: * Acute respiratory failure with hypoxia secondary to aspiration of esophageal contents-clinically improving with ongoing aspiration precautions/supplemental oxygen/pulmonary toilet. * Aspiration pneumonia secondary to esophageal stricture with resultant reflux - continue antibiotic coverage. Await ST eval/recommendations. Will need o utpatient GI follow-up * Suboptimally controlled hypertension-increase metoprolol to 50/as needed hyd ralazine * Hyperlipidemia continue statin * Lower external lymphedema and responding to diuretics * Iron deficiency anemia * Anxiety disorder stable on sertraline/benzodiazepine * GERD continue PPI * Degenerative joint disease on home dose hydrocodone * History of glaucoma-continue timolol * DNR * Prophylaxis heparin Plan * Continue PT OT * elevate HOB and maintain aspiration precaution * Continue levofloxacin for additional 4 days * Pre-existing medical condition management on home meds * Discharge planning per case management likely in 24 hours Current Visit: Yes
[2018-12-31] MEDS: tiZANidine 4 MG TABLET PO SCH (21:51)
[2018-12-31] MEDS: SIMVASTATIN 20 MG TABLET PO SCH (21:52)
[2018-12-31] MEDS: SENNOSIDES/DOCUSATE SODIUM 1 TAB TABLET PO SCH (21:55)
[2019-01-01] MEDS: hydrALAZINE 20 MG/ML VIAL IV PRN (00:27)
[2019-01-01] MEDS: 0.9 % SODIUM CHLORIDE 10 ML SYRINGE IV SCH (05:34)
[2019-01-01] MEDS: PIPERACILLIN SODIUM/TAZOBACTAM 2.25 GM in DEXTROSE 5% IN WATER 50 ML IV SCH (05:34)
[2019-01-01 07:00] LABS: Bilirubin,Direct < 0.2 mg/dL (0.0-0.3); Chloride 97 mmol/L (96-108)
[2019-01-01 07:11] LABS: ALT/SGPT 11 U/l (0-40); AST/SGOT 28 U/l (0-37); Albumin 2.9 gm/dL (3.2-5.2); Alkaline Phosphatase 68 U/L (39-117); Bilirubin,Total 0.4 mg/dL (0.0-1.0); Blood Urea Nitrogen 21 mg/dl (8-23); Calcium 8.9 mg/dl (8.6-10.4); Carbon Dioxide 31 mmol/L (22-30); Globulin 2.9 gm/dL (2.2-3.7); Glomerular Filtration Rate 67; Glucose 88 mg/dL (70-105); Lactate Dehydrogenase 245 U/L (94-250); Phosphorous 3.4 mg/dL (2.7-4.5); Triglycerides 117 mg/dl (<150); Uric Acid 4.1 mg/dL (2.5-8.0)
[2019-01-01 08:25] LABS: Band Neutrophils % 1 % (0-10); Lymphocytes % 9 % (15-49); Monocytes % (Manual) 8 % (1-12); Platelet Estimate DECREASED (NORMAL); RBC Morphology NORMAL (NORMAL); Segmented Neutrophils % 82 % (38-78)
[2019-01-01 08:51] LABS: Hematocrit 46.1 % (36.0-48.0); Hemoglobin 15.4 g/dL (12.0-15.0); Mean Cell Volume 96.2 fL (80.0-100.0); Mean Corpuscular HGB Conc 33.3 g/dL (31.0-36.0); Mean Platelet Volume 8.4 fL (7.4-10.4); Platelet Count 120 K/mcL (140-440); RBC 4.79 M/mcL (4.00-5.20); WBC 4.8 K/mcL (4.5-11.0)
[2019-01-01] MEDS ORDERED: LEVOFLOXACIN 750 MG TABLET PO ONE (09:30)
[2019-01-01] MEDS: DOCUSATE SODIUM 100 MG CAPSULE PO SCH (10:04)
[2019-01-01] MEDS: HYDROcodone/APAP 5/325MG TABLET PO SCH (10:04)
[2019-01-01] MEDS: PANTOPRAZOLE 40 MG TABLET PO SCH (10:07)
[2019-01-01] MEDS: MULTIVIT,THER IRON,CA,FA & MIN 1 TABLET PO SCH (10:08)
[2019-01-01] MEDS: POTASSIUM CHLORIDE 20 MEQ TABLET PO SCH (10:09)
[2019-01-01] MEDS: METOPROLOL TARTRATE 50 MG TABLET PO SCH (10:09)
[2019-01-01] MEDS: SERTRALINE 100 MG TABLET PO SCH (10:10)
[2019-01-01] MEDS: ASPIRIN 81 MG TAB.CHEW PO SCH (10:10)
[2019-01-01] MEDS: POLYETHYLENE GLYCOL 3350 17 GM PACKET PO SCH (10:11)
[2019-01-01] MEDS: HEPARIN 5,000 UNIT/ML VIAL SQ SCH (10:12)
[2019-01-01] MEDS: FUROSEMIDE 20 MG/2 ML VIAL IV SCH ×2 (10:13→11:12)
[2019-01-01] MEDS: TIMOLOL OU SCH ×2 (10:15→12:58)
[2019-01-01] MEDS: DORZOLAMIDE OU SCH ×2 (10:15→12:58)
--- NOTE | 2019-01-01 10:49 | Discharge Summary ---
Medical - DS: Prov Patient information: Note initiated : 01/01/19 at 10:43 am Service Date, if different from initiated Date: [] Patient: Kim Torres 88 y/o F admitted on 12/28/18 for weakness. Chief Complaint: [] Date of admission: 12/28/18 23:11 Discharge date: 01/01/19 Primary care physician: Franchesca Cardenas Consults: 12/29/18 11:54 Consult to Physician [CONS] Routine Comment: late entry Consulting Provider: Ciro Hampton Reason For Exam: Physician to Consult Medical - DS: Meds - Discharge Medications Prescriptions: Levofloxacin [Levaquin] 750 mg PO DAILY #3 tab Transmission Status: Pending to [facility] Metoprolol Tartrate [Lopressor] 25 mg PO QDAY #30 tab Transmission Status: Pending to [facility] Active and Home Medications: Home Medications Polyethylene Glycol 3350 [Miralax] 17 gm PO DAILY 12/28/18 [History Confirmed 12/29/18 Last Taken 12/28/18] aspirin 81 mg tablet,delayed release 81 mg PO QDAY 12/28/18 [History Confirmed 12/29/18 Last Taken 12/28/18] dorzolamide-timolol (PF) 2 %-0.5 % eye drops in a dropperette 1 drp BOTH EYES BID 12/28/18 [History Confirmed 12/29/18 Last Taken 12/28/18] furosemide 40 mg tablet 40 mg PO QAM 12/28/18 [History Confirmed 12/29/18 Last Taken 12/28/18] hydrocodone 5 mg-acetaminophen 325 mg tablet 1 tab PO BID tab 12/28/18 [History Confirmed 12/29/18 Last Taken 12/28/18] lansoprazole 30 mg capsule,delayed release 30 mg PO BID cap 12/28/18 [History Confirmed 12/29/18 Last Taken 12/28/18] lorazepam 0.5 mg tablet 0.25 mg PO QHS PRN 12/28/18 [History Confirmed 12/29/18 Last Taken Unknown] multivit with tbdcrsfb-bwta-QE-lutein 8 mg iron-400 mcg-300 mcg tablet 1 tab PO QDAY 12/28/18 [History Confirmed 12/28/18 Last Taken Unknown] potassium chloride 10 mEq capsule,extended release 20 meq PO QDAY 12/28/18 [History Confirmed 12/29/18 Last Taken 12/28/18] prednisone 5 mg tablet 5 mg PO Q OTHER DAY tab 12/28/18 [History Confirmed 12/29/18 Last Taken 12/28/18] sennosides 8.6 mg tablet 8.6 mg PO BID PRN 12/28/18 [History Confirmed 12/29/18 Last Taken Unknown] sertraline 100 mg tablet 100 mg PO QDAY 12/28/18 [History Confirmed 12/29/18 Last Taken 12/28/18] simvastatin 20 mg tablet 20 mg PO QHS 12/28/18 [History Confirmed 12/29/18 Last Taken Unknown] Levofloxacin [Levaquin] 750 mg PO DAILY #3 tab 01/01/19 [Rx Last Taken Unknown] Metoprolol Tartrate [Lopressor] 25 mg PO QDAY #30 tab 01/01/19 [Rx Last Taken Unknown] Medical - DS: Hosp Hospital Course: Discharge diagnosis * Acute respiratory failure with hypoxia secondary to aspiration of esophageal contents-now on 1 L oxygen. Clinically improved * Aspiration pneumonia secondary to esophageal stricture with resultant reflux - clinically improved with antibiotic coverage. Continue diet per ST recommendations , elevate HOB/all meals sitting upright on chair to prevent aspiration * Suboptimally controlled hypertension-increase metoprolol to 25, further opti mization of blood pressures by primary care physician as outpatient * Hyperlipidemia continue statin * Lower external lymphedema responded well to diuretics * Anxiety disorder managed on sertraline/benzodiazepine * GERD continue PPI * Degenerative joint disease managed on home dose hydrocodone * History of glaucoma-continue home dose timolol Brief hospital course Ms. Torres is a 88 year old F resident at [facility] living with known history of esophageal stricture with intermittent dilatation in the past. She was taken [facility] with increasing shortness of breath, moist cough and dyspnea. Imaging was consistent with pneumonia she was sent to the ER for further evaluation. She is accompanied with her elder daughter Kika. She was able to answer most the question. She was initially fairly distressed with tachypnea and SOB requiring oxygen to maintain sats . Symptoms were about a week in onset with cough and dyspnea. She denies associated fever or shaking chills. She denies recent exposure to sick contacts, denies choking episodes. Initial work-up in the ER consistent with aspiration pneumonia/distended and fluid-filled esophagus with suspected stricture at GE level, she was promptly initiated on Rocephin/Zithromax coverage. Hospitalist service is consulted for admission in light of above At the time of evaluation patient is accompanied with her daughter. Most of the history is obtained from review of medical records/ER physician patient's daughter and patient herself. Patient does not appear distressed during my exam, I discussed patient's clinical status with patient's daughter and/ANTONIA Mena. I was advised to continue full medical treatment while keeping her DNR without any aggressive life saving interventions. 12/29-patient doing well this morning. Taking thickened liquids. Denies cough or chest pain. No overnight fever chills, hypoxia much improved now on 1 L oxygen. Restart home medications. Stable hemodynamics. Await ST eval and ecommendations. 12/30-patient clinically improved. On continued antibiotic coverage. No overnight fever chills or concerns per staff except for elevated blood pressures. Potassium down to 3.1 currently on replacement. On 1 L oxygen. Continue dysphagia diet. Await ST eval. Antihypertensives restarted. 12/31-patient complains of lower extremity swelling. No overnight fever chills. No concerns per staff other than lower ext white count 9.6 extremity swelling. Antibiotics ongoing. Currently on room air. White count down to 9.6. 01/01-patient doing well. Ambulating. Tolerating diet. Lymphedema improved. Shortness of breath improved. Blood pressures improved. No overnight events or concerns per staff. Discharge diagnosis: . - Time Spent with Patient Total time spent providing and/or coordinating discharge services: Greater than 30 minutes Medical - DS: Exam - Constitutional Vitals: Vital Signs Temp Pulse Pulse Resp BP BP Pulse Ox 01/01/19 07:59 98.1 F 54 L 22 156/81 96 01/01/19 03:42 97.2 F 55 L 20 148/84 95 12/31/18 23:57 98.8 F 62 22 175/95 91 12/31/18 19:12 98.4 F 60 18 160/78 93 12/31/18 16:00 98.2 F 58 L 18 162/81 93 12/31/18 15:41 62 18 12/31/18 12:00 99 F 63 14 143/78 94 Intake and Output 12/31/18 01/01/19 01/01/19 21:59 05:59 13:59 Intake Total 290 435 Output Total 400 200 Balance -110 235 Intake: IV 50 50 Zosyn 2.25 gm In Dextrose 5% in 50 50 Water 50 ml @ 100 mls/hr IV Q6H [facility] Rx#:[id number] Oral 240 385 Output: Void Amount 400 200 Other: Urine Appearance Clear Clear Urine Color Bright Yellow Bright Yellow Urine Odor Normal Stool Size Moderate Moderate Stool Color Brown Brown Yellow Stool Consistency Loose Normal for Patient Formed # Bowel Movements 1 1 Weight 93 lb 8 oz Medical - DS: Data Labs on day of discharge: Labs from last 24 hours 01/01/19 01/01/19 03:52 03:52 WBC 4.8 RBC 4.79 Hgb 15.4 H Hct 46.1 MCV 96.2 MCH 32.1 MCHC 33.3 RDW 14.0 Plt Count 120 L MPV 8.4 Total Counted 100 Seg Neutrophils % 82 H Band Neutrophils % 1 Lymphocytes % 9 L Monocytes % (Manual) 8 Platelet Estimate Decreased RBC Morphology Normal Sodium 141 Potassium 3.9 Chloride 97 Carbon Dioxide 31 H Anion Gap 13.0 BUN 21 Creatinine 0.8 GFR Calculation 67 Glucose 88 Uric Acid 4.1 Calcium 8.9 Phosphorus 3.4 Magnesium 2.1 Total Bilirubin 0.4 Direct Bilirubin < 0.2 GGT 17 AST 28 ALT 11 Alkaline Phosphatase 68 Lactate Dehydrogenase 245 Total Protein 5.8 L Albumin 2.9 L Globulin 2.9 Albumin/Globulin Ratio 1.0 Triglycerides 117 Preliminary micro results at discharge 12/28/18 21:15 Blood Culture - Preliminary Blood 12/28/18 20:21 Blood Culture - Preliminary Blood Medical - DS: A/P - Patient/Caregiver Discharge Instructions Activity: as per physical therapy, increase activity as tolerated Diet: Dysphagia Level 5 Minced & Moist Foods (Follow ST recommendations) Additional Instructions: Continue antibiotic for additional 3 days Elevate HOB Aspiration precautions Metoprolol 25 Hold tizanidine due to interaction with Levaquin for 3 days PT OT as tolerated ST eval Return to ER if worsening shortness of breath fever chills ST recommendations : Training with caregivers; recommend that patient be completely upright during meals and 30-45 min after meals. Foods should be soft with minimal texture and pills should be provided with applesauce/pudding. Will continue to follow during hospital course. Prescriptions: Levofloxacin [Levaquin] 750 mg PO DAILY #3 tab Transmission Status: Pending to [facility] Metoprolol Tartrate [Lopressor] 25 mg PO QDAY #30 tab Transmission Status: Pending to [facility] - Problem Maintenance (1) Acute respiratory failure with hypoxia Status: Acute - Follow up Plan Follow up with: Franchesca Cardenas MD [Primary Care Provider] - Disposition: Xfer Assisted Living Facility Prognosis: Serious Rehab Potential: Fair I certify that the patient requires SNF services: No Overall status at discharge: patient is progressing back to baseline
[2019-01-01] MEDS ORDERED: FUROSEMIDE 20 MG TABLET PO ONE (11:15)
[2019-01-01] MEDS: predniSONE 5 MG TABLET PO SCH (12:44)
[2019-01-01] MEDS: cefTRIAXone 1 GM VIAL IV SCH (13:02)
== END 2019-01-01 14:43 | DRG 189 ==
LOC: ED 18:25 → MEDSUR 23:11
PROVIDERS: ADMIT Internal Medicine; ATTEND Internal Medicine